=== PATIENT | male | born 1940 | race Caucasian/White ===

== ENCOUNTER 2020-04-25 08:45 | Inpatient (IN) | payer OTHER ==
[~2020-04-25] VITALS: Ht 172.7 cm; Wt 76.6 kg
[2020-04-25] MEDS ORDERED: DOXYCYCLINE 100MG/250ML 250 ML IV ONE ×2 (10:00→14:00)
[2020-04-25] MEDS ORDERED: DexAMETHasone SOD PHOS 10MG/1ML VIAL INJ IV ONE ×2 (10:00→13:45)
[2020-04-25] MEDS ORDERED: SODIUM CHLORIDE 0.9% 1,000 ML IV ONE ×2 (10:00→16:00)
[2020-04-25 10:19] LABS: Basophils # (auto) 0 10 ^3/uL (0-0.2); Basophils % (auto) 0.1 % (0.0-2.0); Eosinophils # (auto) 0 10 ^3/uL (0-0.8); Hematocrit 45.6 % (41.0-53.0); Hemoglobin 15.2 g/dL (13.5-17.5); Lymphocytes # (auto) 0.2 10 ^3/uL (0.4-5.4); Lymphocytes % (auto) 4.2 % (10.0-50.0); Mean Corpuscular Hemoglobin 31.6 pg (28.0-32.0); Mean Corpuscular Hgb Conc. 33.4 g/dL (32.0-36.0); Mean Corpuscular Volume 94.4 fL (80.0-100.0); Monocytes # (auto) 0.4 10 ^3/uL (0-1.3); Monocytes % (auto) 8.4 % (0.0-12.0); Neutrophils # (auto) 4.3 10 ^3/uL (1.6-8.6); Neutrophils % (auto) 87.3 % (37.0-80.0); Nucleated Red Blood Cells % 0.1 %; Platelet Count (auto) 88 10^3/uL (140-450); Red Blood Cells 4.83 10^6/uL (4.5-5.90); Red Cell Distribution Width 13.3 % (11.8-14.3)
[2020-04-25 10:37] LABS: Albumin 3.4 g/dL (3.4-5.0); Calcium 8.4 mg/dL (8.5-10.1); Magnesium 2.5 mg/dL (1.6-2.6); Potassium 3.6 mmol/L (3.5-5.1)
[2020-04-25 10:42] LABS: BUN/Creatinine Ratio 26.2; Bilirubin, Total 0.6 mg/dL (0.2-1.0); Total Protein 7.2 g/dL (6.4-8.2)
[2020-04-25 10:45] LABS: INR 0.96 (0.9-1.15); Partial Thromboplastin Time 31.7 sec (23.0-31.2)
[2020-04-25] MEDS ORDERED: ADENOSINE 6 MG/2 ML INJ IV ONE (11:30)
[2020-04-25] MEDS ORDERED: dilTIAZem 25 MG/5 ML VIAL IV ONE (12:00)
[2020-04-25] MEDS ORDERED: dilTIAZem HCL 60 MG TAB PO ONE (12:00)
[2020-04-25] MEDS ORDERED: NITROGLYCERIN 0.4 MG SL TAB SL PRN (13:30)
[2020-04-25] MEDS ORDERED: MORPHINE SULF INJ 2 MG/ML SYRINGE 1ML IV PRN ×2 (13:30)
[2020-04-25] MEDS ORDERED: ACETAMINOPHEN 500 MG TAB PO PRN ×2 (13:30→22:15)
[2020-04-25] MEDS ORDERED: ONDANSETRON HCL 4 MG/2 ML VIAL IV PRN (13:30)
[2020-04-25] MEDS ORDERED: HYDROcodone-ACET 5/325MG TAB PO PRN (13:30)
[2020-04-25] MEDS ORDERED: ZINC SULFATE 220mg CAP or TAB PO ONE (13:45)
[2020-04-25] MEDS ORDERED: ASPirin-EC 81 mg tab PO ONE (13:45)
[2020-04-25] MEDS ORDERED: CHOLECALCIFEROL (VITD3) 2,000 UNIT CAP PO ONE (13:45)
[2020-04-25] MEDS ORDERED: ASCORBIC ACID 1,000 MG TAB PO ONE (13:45)
[2020-04-25] MEDS ORDERED: ENOXAPARIN SOD 40 MG/0.4 ML SYRINGE SC ONE (13:45)
[2020-04-25] MEDS ORDERED: FAMOTIDINE 20 MG TAB PO ONE (14:00)
[2020-04-25] MEDS: ALBUTEROL SULF HFA 90MCG INH 200DOSE IN SCH ×2 (14:00→23:49)
[2020-04-25] MEDS ORDERED: METOPROLOL TARTRATE 25 MG TAB PO ONE (14:00)
[2020-04-25] MEDS ORDERED: cefTRIAXone 1GM/50ML D5W 50 ML IV ONE (14:00)
[2020-04-25 14:13] LABS: CRP High Sensitivity 4.17 mg/dL (< 0.3)
[2020-04-25] MEDS: METOPROLOL TARTRATE 25 MG TAB PO SCH ×2 (14:13→22:33)
[2020-04-25 14:46] LABS: Urine Bacteria NONE SEEN /hpf (None Seen); Urine Blood Negative /uL (Negative); Urine Hyaline Cast FEW /lpf (0 - 2); Urine Mucus FEW (None Seen); Urine Specific Gravity 1.027 (1.001-1.035); Urine WBC 1 /hpf (0 - 3)
[2020-04-25] MEDS ORDERED: LISI-648 PO (16:06)
[2020-04-25] MEDS ORDERED: DOXA4TAB5 PO (16:08)
[2020-04-25] MEDS ORDERED: THEO400T PO (16:09)
[2020-04-25] MEDS ORDERED: LEVO100T8 PO (16:10)
[2020-04-25] MEDS ORDERED: METOPROLOL TARTRATE 25 MG TAB PO SCH (22:00)
[2020-04-25] MEDS: DOXYCYCLINE 100MG/250ML 250 ML IV SCH (22:33)
[2020-04-25] MEDS: ATORVASTATIN 20 MG TAB PO SCH (22:33)
[2020-04-25 22:48] VITALS: BP 112/67
[2020-04-25 23:40] VITALS: BP 112/67
[2020-04-25] MEDS: BUDESONIDE (INHALATION) 180 MCG IH IN SCH (23:49)
[2020-04-26 06:37] LABS: Basophils # (auto) 0 10 ^3/uL (0-0.2); Eosinophils # (auto) 0 10 ^3/uL (0-0.8); Hematocrit 39.7 % (41.0-53.0); Hemoglobin 13.2 g/dL (13.5-17.5); Lymphocytes # (auto) 0.3 10 ^3/uL (0.4-5.4); Lymphocytes % (auto) 7.2 % (10.0-50.0); Mean Corpuscular Hemoglobin 31.4 pg (28.0-32.0); Mean Corpuscular Hgb Conc. 33.2 g/dL (32.0-36.0); Mean Corpuscular Volume 94.6 fL (80.0-100.0); Monocytes # (auto) 0.3 10 ^3/uL (0-1.3); Monocytes % (auto) 6.6 % (0.0-12.0); Neutrophils # (auto) 3.9 10 ^3/uL (1.6-8.6); Neutrophils % (auto) 86.2 % (37.0-80.0); Nucleated Red Blood Cells % 0.1 %; Platelet Count (auto) 89 10^3/uL (140-450); Red Blood Cells 4.19 10^6/uL (4.5-5.90); Red Cell Distribution Width 13.2 % (11.8-14.3); White Blood Cell 4.5 10^3/uL (4.4-10.8)
[2020-04-26 06:56] LABS: Albumin 2.8 g/dL (3.4-5.0); Calcium 7.8 mg/dL (8.5-10.1); Potassium 3.9 mmol/L (3.5-5.1)
[2020-04-26 06:58] LABS: BUN/Creatinine Ratio 30.7
[2020-04-26 07:00] LABS: Bilirubin, Total 0.4 mg/dL (0.2-1.0)
[2020-04-26] MEDS: ALBUTEROL SULF HFA 90MCG INH 200DOSE IN SCH ×4 (07:43→23:20)
[2020-04-26] MEDS: BUDESONIDE (INHALATION) 180 MCG IH IN SCH ×3 (07:43→23:20)
[2020-04-26] MEDS: METOPROLOL TARTRATE 25 MG TAB PO SCH ×2 (08:30→18:15)
[2020-04-26] MEDS ORDERED: cefTRIAXone 1GM/50ML D5W 50 ML IV SCH (09:00)
[2020-04-26] MEDS ORDERED: ENOXAPARIN SOD 40 MG/0.4 ML SYRINGE SC SCH (10:00)
[2020-04-26] MEDS ORDERED: FAMOTIDINE 20 MG TAB PO SCH (10:00)
[2020-04-26] MEDS ORDERED: ENOXAPARIN SOD 100 MG/1 ML SYRINGE SC ONE (13:00)
[2020-04-26] MEDS ORDERED: FUROSEMIDE 20 MG/2 ML VIAL IV ONE (13:00)
[2020-04-26] MEDS: ASPirin-EC 81 mg tab PO SCH (15:41)
[2020-04-26] MEDS: DOXYCYCLINE 100MG/250ML 250 ML IV SCH ×2 (15:41→23:54)
[2020-04-26] MEDS: ZINC SULFATE 220mg CAP or TAB PO SCH (15:41)
[2020-04-26] MEDS: CHOLECALCIFEROL (VITD3) 2,000 UNIT CAP PO SCH (15:42)
[2020-04-26] MEDS: ASCORBIC ACID 1,000 MG TAB PO SCH (15:42)
[2020-04-26] MEDS: DexAMETHasone SOD PHOS 10MG/1ML VIAL INJ IV SCH (15:42)
[2020-04-26] MEDS: LORazepam 2MG/ML-1ML VIAL IV PRN ×2 (16:32→22:52)
[2020-04-26 17:00] VITALS: BP 120/77
[2020-04-26] MEDS: FUROSEMIDE 20 MG/2 ML VIAL IV SCH (18:00)
[2020-04-26] MEDS: HALOPERIDOL LACTATE 5 MG/ML INJ VIAL IM PRN (21:02)
[2020-04-26] MEDS: ENOXAPARIN SOD 100 MG/1 ML SYRINGE SC SCH (22:00)
[2020-04-26] MEDS: ATORVASTATIN 20 MG TAB PO SCH (22:00)
[2020-04-26] MEDS ORDERED: METOPROLOL TARTRATE 1MG/1ML-5ML VIAL IV ONE (23:30)
[2020-04-26] MEDS: METOPROLOL TARTRATE 50 MG TAB PO SCH (23:36)
[2020-04-26] MEDS: METOPROLOL TARTRATE 1MG/1ML-5ML VIAL IV SCH (23:36)
[2020-04-27] VITALS (27 sets, daily range): BP systolic 90–145; BP diastolic 43–106
[2020-04-27] MEDS: FUROSEMIDE 20 MG/2 ML VIAL IV SCH (05:20)
[2020-04-27] MEDS: METOPROLOL TARTRATE 1MG/1ML-5ML VIAL IV SCH (05:30)
[2020-04-27] MEDS: LORazepam 2MG/ML-1ML VIAL IV PRN (05:45)
[2020-04-27] MEDS: ALBUTEROL SULF HFA 90MCG INH 200DOSE IN SCH ×2 (06:00→14:00)
[2020-04-27] MEDS ORDERED: METOPROLOL TARTRATE 1MG/1ML-5ML VIAL IV PRN ×2 (07:45→10:00)
[2020-04-27] MEDS: HALOPERIDOL LACTATE 5 MG/ML INJ VIAL IM PRN (07:48)
[2020-04-27] MEDS ORDERED: METOPROLOL TARTRATE 1MG/1ML-5ML VIAL IV ONE (07:57)
[2020-04-27] MEDS ORDERED: LORazepam 2MG/ML-1ML VIAL ONE (09:01)
[2020-04-27] MEDS ORDERED: MIDAZOLAM DRIP 50 mg/50mL 50 ML IV ONE ×2 (09:12→10:04)
[2020-04-27] MEDS ORDERED: LORazepam 2MG/ML-1ML VIAL IV PRN (09:15)
[2020-04-27] MEDS: dilTIAZem 125mg/125ml BAG KIT 125 ML IV SCH (09:30)
[2020-04-27] MEDS ORDERED: VANCOMYCIN PER PHARMACY 0 MG IV SCH (09:45)
[2020-04-27] MEDS ORDERED: PIPERACILLIN-TAZOB 3.375GM 100 ML IV ONE (09:45)
[2020-04-27] MEDS ORDERED: FUROSEMIDE 100 MG/10ML VIAL IV ONE (09:45)
[2020-04-27] MEDS: ASCORBIC ACID 1,000 MG TAB PO SCH (10:00)
[2020-04-27] MEDS: DexAMETHasone SOD PHOS 10MG/1ML VIAL INJ IV SCH (10:00)
[2020-04-27] MEDS: FAMOTIDINE (10MG/ML) 2ML VL IV SCH ×2 (10:00→21:49)
[2020-04-27] MEDS: ENOXAPARIN SOD 100 MG/1 ML SYRINGE SC SCH ×2 (10:00→21:50)
[2020-04-27] MEDS: BUDESONIDE (INHALATION) 180 MCG IH IN SCH (10:00)
[2020-04-27] MEDS: ZINC SULFATE 220mg CAP or TAB PO SCH (10:00)
[2020-04-27] MEDS: METOPROLOL TARTRATE 50 MG TAB PO SCH ×2 (10:00→21:50)
[2020-04-27] MEDS: ASPirin-EC 81 mg tab PO SCH (10:00)
[2020-04-27] MEDS: CHOLECALCIFEROL (VITD3) 2,000 UNIT CAP PO SCH (10:00)
[2020-04-27] MEDS: MIDAZOLAM DRIP 50 mg/50mL 50 ML IV SCH ×3 (11:00→23:00)
[2020-04-27 11:44] LABS: Albumin 2.7 g/dL (3.4-5.0); Calcium 7.6 mg/dL (8.5-10.1); Magnesium 2.5 mg/dL (1.6-2.6); Potassium 4.8 mmol/L (3.5-5.1)
[2020-04-27 11:45] LABS: INR 0.95 (0.9-1.15)
[2020-04-27 11:50] LABS: BUN/Creatinine Ratio 24.2; Bilirubin, Total 0.8 mg/dL (0.2-1.0); Phosphorus 5.8 mg/dL (2.5-4.90); Total Protein 6.2 g/dL (6.4-8.2)
[2020-04-27] MEDS ORDERED: dilTIAZem 25 MG/5 ML VIAL IV PRN (12:00)
[2020-04-27 14:07] LABS: Basophils # (auto) 0 10 ^3/uL (0-0.2); Eosinophils # (auto) 0 10 ^3/uL (0-0.8); Hematocrit 45.6 % (41.0-53.0); Hemoglobin 14.8 g/dL (13.5-17.5); Lymphocytes # (auto) 0.2 10 ^3/uL (0.4-5.4); Lymphocytes % (auto) 2.3 % (10.0-50.0); Mean Corpuscular Hemoglobin 31.8 pg (28.0-32.0); Mean Corpuscular Hgb Conc. 32.5 g/dL (32.0-36.0); Mean Corpuscular Volume 97.8 fL (80.0-100.0); Monocytes # (auto) 0.2 10 ^3/uL (0-1.3); Neutrophils # (auto) 8.5 10 ^3/uL (1.6-8.6); Neutrophils % (auto) 95.7 % (37.0-80.0); Platelet Count (auto) 88 10^3/uL (140-450); Red Blood Cells 4.66 10^6/uL (4.5-5.90); Red Cell Distribution Width 13.8 % (11.8-14.3); White Blood Cell 8.9 10^3/uL (4.4-10.8)
[2020-04-27] MEDS ORDERED: NOREPINEPHRINE 8 MG/250ML KIT 250 ML IV ONE (14:45)
[2020-04-27] MEDS: NOREPINEPHRINE 8 MG/250ML KIT 250 ML IV SCH (14:45)
[2020-04-27] MEDS ORDERED: VANCOMYCIN 1GM/250ML 250 ML IV ONE ×2 (15:00→17:00)
[2020-04-27] MEDS ORDERED: FUROSEMIDE 20 MG/2 ML VIAL IV SCH (18:00)
[2020-04-27] MEDS: PIPERACILLIN-TAZOB 3.375GM 100 ML IV SCH (18:00)
[2020-04-27] MEDS: ATORVASTATIN 20 MG TAB PO SCH (22:25)
[2020-04-27] MEDS: fentaNYL Drip 2500mCg/250mlNS 250 ML IV SCH (22:57)
[2020-04-28] VITALS (52 sets, daily range): BP systolic 78–124; BP diastolic 48–78
[2020-04-28] MEDS: PIPERACILLIN-TAZOB 3.375GM 100 ML IV SCH ×3 (00:08→11:46)
[2020-04-28] MEDS: MIDAZOLAM DRIP 50 mg/50mL 50 ML IV SCH ×3 (03:49→21:51)
[2020-04-28] MEDS ORDERED: ETOMIDATE (2MG/ML) 20ML VIAL IV ONE (05:42)
[2020-04-28] MEDS ORDERED: SUCCINYLCHOLINE CHLORIDE 20 MG/ML 10ML VIAL IV ONE (05:43)
[2020-04-28] MEDS ORDERED: FUROSEMIDE 40 MG/4 ML VIAL IV SCH (06:00)
[2020-04-28] MEDS: ALBUTEROL SULF HFA 90MCG INH 200DOSE IN SCH ×2 (06:00→14:00)
[2020-04-28] MEDS: ATORVASTATIN 20 MG TAB PO SCH (07:51)
[2020-04-28 08:07] LABS: Albumin 2.2 g/dL (3.4-5.0); Calcium 7.3 mg/dL (8.5-10.1); Potassium 3.9 mmol/L (3.5-5.1)
[2020-04-28 08:14] LABS: Cholesterol 111 mg/dL (< 200); Triglycerides 56 mg/dL (< 150)
[2020-04-28 08:19] LABS: HDL Cholesterol 56 mg/dL (40-59); LDL Cholesterol 34 mg/dL (< 100)
[2020-04-28 08:20] LABS: BUN/Creatinine Ratio 25.6; Bilirubin, Total 0.7 mg/dL (0.2-1.0); Magnesium 2.7 mg/dL (1.6-2.6); Total Protein 5.5 g/dL (6.4-8.2)
[2020-04-28] MEDS: dilTIAZem 125mg/125ml BAG KIT 125 ML IV SCH (09:30)
[2020-04-28] MEDS: BUDESONIDE (INHALATION) 180 MCG IH IN SCH ×2 (10:00→22:00)
[2020-04-28] MEDS: CHOLECALCIFEROL (VITD3) 2,000 UNIT CAP PO SCH (10:00)
[2020-04-28] MEDS ORDERED: SODIUM BICARBONATE 8.4 % INJ 50ML VIAL IV SCH (10:00)
[2020-04-28] MEDS: ZINC SULFATE 220mg CAP or TAB PO SCH (11:45)
[2020-04-28] MEDS: DexAMETHasone SOD PHOS 10MG/1ML VIAL INJ IV SCH (11:45)
[2020-04-28] MEDS: ASPirin-EC 81 mg tab PO SCH (11:45)
[2020-04-28] MEDS: ASCORBIC ACID 1,000 MG TAB PO SCH (11:45)
[2020-04-28] MEDS: FAMOTIDINE (10MG/ML) 2ML VL IV SCH (11:45)
[2020-04-28] MEDS: ENOXAPARIN SOD 100 MG/1 ML SYRINGE SC SCH (11:45)
[2020-04-28] MEDS ORDERED: REMDESIVIR PER PHARMACY IV SCH (12:15)
[2020-04-28] MEDS ORDERED: PROPOFOL 0 ML IV ONE (12:24)
[2020-04-28] MEDS ORDERED: AZITHROMYCIN 500MG/ 250ML 250 ML IV ONE (13:15)
[2020-04-28] MEDS: NOREPINEPHRINE 8 MG/250ML KIT 250 ML IV SCH ×2 (14:45→22:23)
[2020-04-28] MEDS ORDERED: DOXYCYCLINE 100MG/250ML 250 ML IV SCH ×2 (14:45→15:00)
[2020-04-28] MEDS: fentaNYL Drip 2500mCg/250mlNS 250 ML IV SCH (16:54)
[2020-04-28] MEDS ORDERED: REMDESIVIR 200 MG in NS 210ml LOADING DOSE ADULT IV ONE (17:00)
[2020-04-28 19:30] LABS: Urine Bacteria FEW /hpf (None Seen); Urine Blood 3+ /uL (Negative); Urine Mucus FEW (None Seen); Urine Specific Gravity 1.017 (1.001-1.035); Urine WBC 4 /hpf (0 - 3)
[2020-04-28] MEDS: DOXYCYCLINE 100MG/250ML 250 ML IV SCH (20:00)
[2020-04-29] VITALS (102 sets, daily range): BP systolic 87–136; BP diastolic 47–113
[2020-04-29] MEDS: MIDAZOLAM DRIP 50 mg/50mL 50 ML IV SCH ×4 (00:36→23:46)
[2020-04-29] MEDS: ALBUTEROL SULF HFA 90MCG INH 200DOSE IN SCH (01:31)
[2020-04-29 02:42] LABS: Urine Bacteria NONE SEEN /hpf (None Seen); Urine Blood 2+ /uL (Negative); Urine Hyaline Cast FEW /lpf (0 - 2); Urine Mucus FEW (None Seen); Urine Specific Gravity 1.019 (1.001-1.035); Urine WBC 12 /hpf (0 - 3); Urine WBC Clumps PRESENT /hpf (None Seen)
[2020-04-29] MEDS: fentaNYL Drip 2500mCg/250mlNS 250 ML IV SCH (02:44)
[2020-04-29 03:07] LABS: Protein, Urine 51.4 mg/dL (0.0-11.9); Sodium Urine < 5 mmol/L (40-220)
[2020-04-29 03:09] LABS: Creatinine, Urine 90 mg/dL (30.0-125.0)
[2020-04-29 05:45] LABS: Basophils # (auto) 0 10 ^3/uL (0-0.2); Basophils % (auto) 0.2 % (0.0-2.0); Eosinophils # (auto) 0 10 ^3/uL (0-0.8); Hematocrit 34.8 % (41.0-53.0); Hemoglobin 11.6 g/dL (13.5-17.5); Lymphocytes # (auto) 0.2 10 ^3/uL (0.4-5.4); Lymphocytes % (auto) 1.8 % (10.0-50.0); Mean Corpuscular Hemoglobin 31.4 pg (28.0-32.0); Mean Corpuscular Hgb Conc. 33.3 g/dL (32.0-36.0); Mean Corpuscular Volume 94.3 fL (80.0-100.0); Monocytes # (auto) 0.3 10 ^3/uL (0-1.3); Monocytes % (auto) 2.9 % (0.0-12.0); Neutrophils # (auto) 8.8 10 ^3/uL (1.6-8.6); Neutrophils % (auto) 95.1 % (37.0-80.0); Nucleated Red Blood Cells % 0.1 %; Platelet Count (auto) 115 10^3/uL (140-450); Red Blood Cells 3.69 10^6/uL (4.5-5.90); Red Cell Distribution Width 13.6 % (11.8-14.3); White Blood Cell 9.3 10^3/uL (4.4-10.8)
[2020-04-29 06:10] LABS: BUN/Creatinine Ratio 27.5; Calcium 7.8 mg/dL (8.5-10.1); Potassium 3.9 mmol/L (3.5-5.1)
[2020-04-29 06:20] LABS: Bilirubin, Total 0.4 mg/dL (0.2-1.0); CRP High Sensitivity 17.6 mg/dL (< 0.3); Phosphorus 3.9 mg/dL (2.5-4.90); Total Protein 5.5 g/dL (6.4-8.2)
[2020-04-29] MEDS: BUDESONIDE (INHALATION) 0.5 MG/2 ML NEB NEB SCH ×2 (07:13→18:51)
[2020-04-29] MEDS: ALBUTEROL SULF 2.5 MG/0.5ML(0.5%) NEB SOLN NEB SCH ×3 (07:13→18:51)
[2020-04-29] MEDS: dilTIAZem 125mg/125ml BAG KIT 125 ML IV SCH (08:27)
[2020-04-29] MEDS: DOXYCYCLINE 100MG/250ML 250 ML IV SCH ×2 (08:27→19:51)
[2020-04-29] MEDS: ASPirin-EC 81 mg tab PO SCH (08:27)
[2020-04-29] MEDS: ZINC SULFATE 220mg CAP or TAB PO SCH (08:28)
[2020-04-29] MEDS: CHOLECALCIFEROL (VITD3) 2,000 UNIT CAP PO SCH (08:28)
[2020-04-29] MEDS: DexAMETHasone SOD PHOS 10MG/1ML VIAL INJ IV SCH (08:28)
[2020-04-29] MEDS: ASCORBIC ACID 1,000 MG TAB PO SCH (08:28)
[2020-04-29] MEDS: FAMOTIDINE (10MG/ML) 2ML VL IV SCH (08:28)
[2020-04-29] MEDS: ENOXAPARIN SOD 100 MG/1 ML SYRINGE SC SCH (08:28)
[2020-04-29] MEDS ORDERED: AZITHROMYCIN 500MG/ 250ML 250 ML IV SCH (10:00)
[2020-04-29] MEDS: REMDESIVIR 100mg in NS 230ml DAILYx4DAYS (NO VENT) IV SCH (16:46)
[2020-04-29 17:10] LABS: Creatinine, Urine 112 mg/dL (30.0-125.0); Protein, Urine 55.4 mg/dL (0.0-11.9); Sodium Urine < 5 mmol/L (40-220); Urine Bacteria FEW /hpf (None Seen); Urine Blood 2+ /uL (Negative); Urine Hyaline Cast FEW /lpf (0 - 2); Urine Specific Gravity 1.017 (1.001-1.035); Urine WBC 3 /hpf (0 - 3)
[2020-04-29] MEDS ORDERED: Jevity 1.2 Cal/Fiber 1 Liter GT SCH (18:00)
[2020-04-29] MEDS: NOREPINEPHRINE 8 MG/250ML KIT 250 ML IV SCH (19:58)
[2020-04-29] MEDS: ATORVASTATIN 20 MG TAB PO SCH (22:23)
[2020-04-30] VITALS (98 sets, daily range): BP systolic 81–137; BP diastolic 37–72
[2020-04-30 02:04] LABS: Urine Amorphous Crystal FEW /hpf (None Seen); Urine Bacteria FEW /hpf (None Seen); Urine Blood 2+ /uL (Negative); Urine Hyaline Cast MANY /lpf (0 - 2); Urine Mucus FEW (None Seen); Urine Specific Gravity 1.017 (1.001-1.035); Urine WBC 12 /hpf (0 - 3)
[2020-04-30] MEDS: fentaNYL Drip 2500mCg/250mlNS 250 ML IV SCH ×2 (02:57→23:39)
[2020-04-30] MEDS: MIDAZOLAM DRIP 50 mg/50mL 50 ML IV SCH ×3 (03:15→23:56)
[2020-04-30 03:59] LABS: Basophils # (auto) 0 10 ^3/uL (0-0.2); Basophils % (auto) 0.1 % (0.0-2.0); Eosinophils # (auto) 0 10 ^3/uL (0-0.8); Hematocrit 34.6 % (41.0-53.0); Hemoglobin 11.5 g/dL (13.5-17.5); Lymphocytes # (auto) 0.1 10 ^3/uL (0.4-5.4); Lymphocytes % (auto) 1.3 % (10.0-50.0); Mean Corpuscular Hemoglobin 31.6 pg (28.0-32.0); Mean Corpuscular Hgb Conc. 33.1 g/dL (32.0-36.0); Mean Corpuscular Volume 95.4 fL (80.0-100.0); Monocytes # (auto) 0.4 10 ^3/uL (0-1.3); Monocytes % (auto) 4.5 % (0.0-12.0); Neutrophils # (auto) 7.5 10 ^3/uL (1.6-8.6); Neutrophils % (auto) 94.1 % (37.0-80.0); Nucleated Red Blood Cells % 0.1 %; Platelet Count (auto) 130 10^3/uL (140-450); Red Blood Cells 3.63 10^6/uL (4.5-5.90); Red Cell Distribution Width 13.7 % (11.8-14.3); White Blood Cell 7.9 10^3/uL (4.4-10.8)
[2020-04-30 04:22] LABS: Bilirubin, Direct 0.2 mg/dL (0-0.2); Calcium 7.9 mg/dL (8.5-10.1); Potassium 4.5 mmol/L (3.5-5.1)
[2020-04-30 04:25] LABS: BUN/Creatinine Ratio 30.5; Bilirubin, Total 0.4 mg/dL (0.2-1.0); Phosphorus 4.4 mg/dL (2.5-4.90); Total Protein 5.4 g/dL (6.4-8.2)
[2020-04-30] MEDS: ALBUTEROL SULF 2.5 MG/0.5ML(0.5%) NEB SOLN NEB SCH ×3 (06:00→22:47)
[2020-04-30] MEDS: BUDESONIDE (INHALATION) 0.5 MG/2 ML NEB NEB SCH ×2 (06:00→22:47)
[2020-04-30] MEDS: dilTIAZem 125mg/125ml BAG KIT 125 ML IV SCH (09:30)
[2020-04-30] MEDS: DOXYCYCLINE 100MG/250ML 250 ML IV SCH ×2 (09:32→20:20)
[2020-04-30] MEDS: DexAMETHasone SOD PHOS 10MG/1ML VIAL INJ IV SCH (10:12)
[2020-04-30] MEDS: CHOLECALCIFEROL (VITD3) 2,000 UNIT CAP PO SCH (10:13)
[2020-04-30] MEDS: ASPirin-EC 81 mg tab PO SCH (10:13)
[2020-04-30] MEDS: ASCORBIC ACID 1,000 MG TAB PO SCH (10:13)
[2020-04-30] MEDS: FAMOTIDINE (10MG/ML) 2ML VL IV SCH (10:13)
[2020-04-30] MEDS: ENOXAPARIN SOD 100 MG/1 ML SYRINGE SC SCH (10:13)
[2020-04-30] MEDS: ZINC SULFATE 220mg CAP or TAB PO SCH (10:18)
[2020-04-30] MEDS: DOPamine 1600MCG/ML D5W 250 ML IV SCH (12:00)
[2020-04-30] MEDS ORDERED: DEXTROSE (50%) 50ML SYRG IV PRN (15:00)
[2020-04-30] MEDS: InsuLIN REG 1unit/0.01ml Soln (100units/ml) SC SCH ×2 (17:23→22:00)
[2020-04-30] MEDS: ACCU-CHEK COMFORT CURVE STRIP VI SCH ×2 (17:23→22:00)
[2020-04-30] MEDS: REMDESIVIR 100mg in NS 230ml DAILYx4DAYS (NO VENT) IV SCH (17:23)
[2020-04-30] MEDS: ATORVASTATIN 20 MG TAB PO SCH (22:00)
[2020-05-01] VITALS (100 sets, daily range): BP systolic 69–144; BP diastolic 23–79
[2020-05-01] MEDS: MIDAZOLAM DRIP 50 mg/50mL 50 ML IV SCH ×3 (04:03→22:54)
[2020-05-01] MEDS: ACCU-CHEK COMFORT CURVE STRIP VI SCH ×4 (06:05→22:00)
[2020-05-01] MEDS: InsuLIN REG 1unit/0.01ml Soln (100units/ml) SC SCH ×4 (06:06→22:00)
[2020-05-01 06:10] LABS: Albumin 1.9 g/dL (3.4-5.0); Potassium 4.8 mmol/L (3.5-5.1)
[2020-05-01 06:15] LABS: BUN/Creatinine Ratio 36.3; Bilirubin, Total 0.4 mg/dL (0.2-1.0); Total Protein 5.4 g/dL (6.4-8.2)
[2020-05-01] MEDS: DOXYCYCLINE 100MG/250ML 250 ML IV SCH ×2 (08:17→20:00)
[2020-05-01] MEDS: dilTIAZem 125mg/125ml BAG KIT 125 ML IV SCH (09:30)
[2020-05-01] MEDS: DOPamine 1600MCG/ML D5W 250 ML IV SCH (10:00)
[2020-05-01] MEDS: DexAMETHasone SOD PHOS 10MG/1ML VIAL INJ IV SCH (10:40)
[2020-05-01] MEDS: ZINC SULFATE 220mg CAP or TAB PO SCH (10:41)
[2020-05-01] MEDS: ASPirin-EC 81 mg tab PO SCH (10:41)
[2020-05-01] MEDS: FAMOTIDINE (10MG/ML) 2ML VL IV SCH (10:41)
[2020-05-01] MEDS: ENOXAPARIN SOD 100 MG/1 ML SYRINGE SC SCH (10:41)
[2020-05-01] MEDS: CHOLECALCIFEROL (VITD3) 2,000 UNIT CAP PO SCH (10:41)
[2020-05-01] MEDS: ASCORBIC ACID 1,000 MG TAB PO SCH (10:41)
[2020-05-01] MEDS: ALBUTEROL SULF 2.5 MG/0.5ML(0.5%) NEB SOLN NEB SCH ×3 (10:50→20:13)
[2020-05-01] MEDS: BUDESONIDE (INHALATION) 0.5 MG/2 ML NEB NEB SCH ×2 (10:50→20:13)
[2020-05-01] MEDS: fentaNYL Drip 2500mCg/250mlNS 250 ML IV SCH ×2 (11:05→22:57)
[2020-05-01] MEDS: NOREPINEPHRINE 8 MG/250ML KIT 250 ML IV SCH ×2 (14:45→16:14)
[2020-05-01] MEDS ORDERED: METOPROLOL TARTRATE 50 MG TAB PO ONE (16:30)
[2020-05-01] MEDS: REMDESIVIR 100mg in NS 230ml DAILYx4DAYS (NO VENT) IV SCH (17:30)
[2020-05-01] MEDS: METOPROLOL TARTRATE 50 MG TAB PO SCH (22:00)
[2020-05-01] MEDS: ATORVASTATIN 20 MG TAB PO SCH (22:00)
[2020-05-02] VITALS (100 sets, daily range): BP systolic 81–130; BP diastolic 48–74
[2020-05-02] MEDS: MIDAZOLAM DRIP 50 mg/50mL 50 ML IV SCH ×4 (05:06→17:33)
[2020-05-02] MEDS: ALBUTEROL SULF 2.5 MG/0.5ML(0.5%) NEB SOLN NEB SCH ×3 (06:00→23:58)
[2020-05-02] MEDS: ACCU-CHEK COMFORT CURVE STRIP VI SCH ×4 (06:41→22:00)
[2020-05-02] MEDS: InsuLIN REG 1unit/0.01ml Soln (100units/ml) SC SCH ×4 (06:42→22:00)
[2020-05-02 07:05] LABS: Hemoglobin 11.2 g/dL (13.5-17.5); Mean Corpuscular Hemoglobin 32.1 pg (28.0-32.0); Mean Corpuscular Volume 94.6 fL (80.0-100.0); Platelet Count (auto) 155 10^3/uL (140-450); Red Blood Cells 3.49 10^6/uL (4.5-5.90); Red Cell Distribution Width 13.5 % (11.8-14.3); White Blood Cell 5.1 10^3/uL (4.4-10.8)
[2020-05-02 07:07] LABS: Basophils % (manual) 0 (0.0-2.0); Blast Cells 0; Eosinophils % (manual) 0 (0-7); Promyelocytes % 0; Reactive Lymphocytes 0
[2020-05-02 07:10] LABS: Potassium 5.1 mmol/L (3.5-5.1)
[2020-05-02 07:23] LABS: Albumin 1.9 g/dL (3.4-5.0); BUN/Creatinine Ratio 42.1; Bilirubin, Total 0.5 mg/dL (0.2-1.0); Calcium 7.9 mg/dL (8.5-10.1); Total Protein 5.2 g/dL (6.4-8.2)
[2020-05-02] MEDS: DOXYCYCLINE 100MG/250ML 250 ML IV SCH ×2 (08:06→20:00)
[2020-05-02 08:41] LABS: Band Neutrophils % (manual) 1; Lymphocytes % (manual) 8 (10.0-50.0); Metamyelocytes % 2; Monocytes % (manual) 4 (0-12); Myelocytes % 1
[2020-05-02] MEDS: BUDESONIDE (INHALATION) 0.5 MG/2 ML NEB NEB SCH ×2 (10:00→23:58)
[2020-05-02] MEDS: ENOXAPARIN SOD 100 MG/1 ML SYRINGE SC SCH ×2 (10:00→10:06)
[2020-05-02] MEDS: FAMOTIDINE (10MG/ML) 2ML VL IV SCH (10:06)
[2020-05-02] MEDS: ASCORBIC ACID 1,000 MG TAB PO SCH (10:06)
[2020-05-02] MEDS: METOPROLOL TARTRATE 50 MG TAB PO SCH ×2 (10:07→22:00)
[2020-05-02] MEDS: CHOLECALCIFEROL (VITD3) 2,000 UNIT CAP PO SCH (10:07)
[2020-05-02] MEDS: DexAMETHasone SOD PHOS 10MG/1ML VIAL INJ IV SCH (10:08)
[2020-05-02] MEDS: DOPamine 1600MCG/ML D5W 250 ML IV SCH (11:47)
[2020-05-02] MEDS: ZINC SULFATE 220mg CAP or TAB PO SCH (12:00)
[2020-05-02] MEDS ORDERED: METOCLOPRAMIDE HCL 5MG/ml INJ 2ml VIAL IV PRN (12:00)
[2020-05-02] MEDS: ASPirin-EC 81 mg tab PO SCH (12:00)
[2020-05-02] MEDS ORDERED: METOCLOPRAMIDE HCL 5MG/ml INJ 2ml VIAL IV ONE (16:15)
[2020-05-02] MEDS: REMDESIVIR 100mg in NS 230ml DAILYx4DAYS (NO VENT) IV SCH (17:35)
[2020-05-02] MEDS: NOREPINEPHRINE 8 MG/250ML KIT 250 ML IV SCH (17:52)
[2020-05-02] MEDS ORDERED: ALBUMIN 25% 50 ML IV ONE ×2 (18:00→18:15)
[2020-05-02] MEDS: fentaNYL Drip 2500mCg/250mlNS 250 ML IV SCH (21:56)
[2020-05-02] MEDS: METOCLOPRAMIDE HCL 5MG/ml INJ 2ml VIAL IV SCH (21:56)
[2020-05-02] MEDS: ATORVASTATIN 20 MG TAB PO SCH (21:56)
[2020-05-03] VITALS (94 sets, daily range): BP systolic 85–120; BP diastolic 40–68
[2020-05-03 06:25] LABS: Basophils # (auto) 0 10 ^3/uL (0-0.2); Basophils % (auto) 0.1 % (0.0-2.0); Eosinophils # (auto) 0 10 ^3/uL (0-0.8); Hematocrit 35.9 % (41.0-53.0); Hemoglobin 11.6 g/dL (13.5-17.5); Lymphocytes # (auto) 0.3 10 ^3/uL (0.4-5.4); Lymphocytes % (auto) 2.2 % (10.0-50.0); Mean Corpuscular Hemoglobin 30.6 pg (28.0-32.0); Mean Corpuscular Hgb Conc. 32.3 g/dL (32.0-36.0); Mean Corpuscular Volume 94.7 fL (80.0-100.0); Monocytes # (auto) 0.9 10 ^3/uL (0-1.3); Monocytes % (auto) 6.8 % (0.0-12.0); Neutrophils # (auto) 12.1 10 ^3/uL (1.6-8.6); Neutrophils % (auto) 90.9 % (37.0-80.0); Platelet Count (auto) 226 10^3/uL (140-450); Red Blood Cells 3.79 10^6/uL (4.5-5.90); Red Cell Distribution Width 13.7 % (11.8-14.3); White Blood Cell 13.3 10^3/uL (4.4-10.8)
[2020-05-03] MEDS: ACCU-CHEK COMFORT CURVE STRIP VI SCH ×4 (06:37→21:31)
[2020-05-03] MEDS: InsuLIN REG 1unit/0.01ml Soln (100units/ml) SC SCH ×4 (06:37→22:00)
[2020-05-03 06:44] LABS: Calcium 7.6 mg/dL (8.5-10.1); Potassium 5.4 mmol/L (3.5-5.1)
[2020-05-03 06:47] LABS: Albumin 2.2 g/dL (3.4-5.0); BUN/Creatinine Ratio 31.4
[2020-05-03] MEDS: ALBUTEROL SULF 2.5 MG/0.5ML(0.5%) NEB SOLN NEB SCH ×3 (06:47→23:18)
[2020-05-03 06:50] LABS: Bilirubin, Total 0.5 mg/dL (0.2-1.0); Total Protein 5.4 g/dL (6.4-8.2)
[2020-05-03] MEDS: DOXYCYCLINE 100MG/250ML 250 ML IV SCH (08:00)
[2020-05-03] MEDS: METOPROLOL TARTRATE 50 MG TAB PO SCH ×3 (10:00→21:31)
[2020-05-03] MEDS: ASPirin-EC 81 mg tab PO SCH ×2 (10:00→10:33)
[2020-05-03] MEDS: ZINC SULFATE 220mg CAP or TAB PO SCH ×2 (10:00→10:33)
[2020-05-03] MEDS: ASCORBIC ACID 1,000 MG TAB PO SCH ×2 (10:00→10:33)
[2020-05-03] MEDS: DOPamine 1600MCG/ML D5W 250 ML IV SCH (10:00)
[2020-05-03] MEDS: fentaNYL Drip 2500mCg/250mlNS 250 ML IV SCH (10:00)
[2020-05-03] MEDS: CHOLECALCIFEROL (VITD3) 2,000 UNIT CAP PO SCH ×2 (10:00→10:33)
[2020-05-03] MEDS: FAMOTIDINE (10MG/ML) 2ML VL IV SCH (10:33)
[2020-05-03] MEDS: DexAMETHasone SOD PHOS 10MG/1ML VIAL INJ IV SCH (10:34)
[2020-05-03] MEDS: ENOXAPARIN SOD 100 MG/1 ML SYRINGE SC SCH (10:35)
[2020-05-03] MEDS: MIDAZOLAM DRIP 50 mg/50mL 50 ML IV SCH (11:00)
[2020-05-03] MEDS: BUDESONIDE (INHALATION) 0.5 MG/2 ML NEB NEB SCH ×2 (11:07→23:17)
[2020-05-03] MEDS: METOCLOPRAMIDE HCL 5MG/ml INJ 2ml VIAL IV SCH ×2 (14:00→21:30)
[2020-05-03] MEDS: NOREPINEPHRINE 8 MG/250ML KIT 250 ML IV SCH (14:45)
[2020-05-03] MEDS ORDERED: DIGOXIN (250MCG/ML) 2 ML AMPULE ONE (16:09)
[2020-05-03] MEDS ORDERED: DIGOXIN (250MCG/ML) 2 ML AMPULE IV ONE ×2 (16:15→16:35)
[2020-05-03 18:53] LABS: BUN/Creatinine Ratio 32.5; Calcium 7.8 mg/dL (8.5-10.1)
[2020-05-03 19:09] LABS: Potassium 5.7 mmol/L (3.5-5.1)
[2020-05-03] MEDS ORDERED: BUMETANIDE 2.5mg/10ml (0.25 mg/ml) INJ IV ONE (19:45)
[2020-05-03] MEDS: ATORVASTATIN 20 MG TAB PO SCH (21:31)
[2020-05-04] VITALS (92 sets, daily range): BP systolic 86–158; BP diastolic 46–91
[2020-05-04] MEDS ORDERED: DIGOXIN (250MCG/ML) 2 ML AMPULE IV ONE (02:45)
[2020-05-04] MEDS: BUDESONIDE (INHALATION) 0.5 MG/2 ML NEB NEB SCH ×2 (05:53→22:59)
[2020-05-04] MEDS: ALBUTEROL SULF 2.5 MG/0.5ML(0.5%) NEB SOLN NEB SCH ×3 (05:53→22:59)
[2020-05-04] MEDS: METOCLOPRAMIDE HCL 5MG/ml INJ 2ml VIAL IV SCH ×3 (06:00→21:37)
[2020-05-04] MEDS: ACCU-CHEK COMFORT CURVE STRIP VI SCH ×4 (07:02→21:45)
[2020-05-04] MEDS: InsuLIN REG 1unit/0.01ml Soln (100units/ml) SC SCH ×4 (07:02→22:00)
[2020-05-04 07:55] LABS: Albumin 2.2 g/dL (3.4-5.0); Calcium 8.2 mg/dL (8.5-10.1); Potassium 5.4 mmol/L (3.5-5.1)
[2020-05-04 08:00] LABS: BUN/Creatinine Ratio 39.8; Bilirubin, Total 0.5 mg/dL (0.2-1.0); Total Protein 5.6 g/dL (6.4-8.2)
[2020-05-04 09:35] LABS: Hematocrit 37.8 % (41.0-53.0); Hemoglobin 12.3 g/dL (13.5-17.5); Mean Corpuscular Hemoglobin 30.5 pg (28.0-32.0); Mean Corpuscular Hgb Conc. 32.5 g/dL (32.0-36.0); Mean Corpuscular Volume 93.9 fL (80.0-100.0); Platelet Count (auto) 207 10^3/uL (140-450); Red Blood Cells 4.02 10^6/uL (4.5-5.90); Red Cell Distribution Width 13.5 % (11.8-14.3); White Blood Cell 14.8 10^3/uL (4.4-10.8)
[2020-05-04 09:37] LABS: Band Neutrophils % (manual) 0; Basophils % (manual) 0 (0.0-2.0); Blast Cells 0; Eosinophils % (manual) 0 (0-7); Myelocytes % 0; Promyelocytes % 0; Reactive Lymphocytes 0
[2020-05-04] MEDS ORDERED: SODIUM CHLORIDE 0.9% 500 ML IV ONE (10:00)
[2020-05-04] MEDS ORDERED: SOD CHL 0.45% 1,000 ML IV SCH (10:00)
[2020-05-04] MEDS: DOPamine 1600MCG/ML D5W 250 ML IV SCH (10:00)
[2020-05-04] MEDS ORDERED: AMIODARONE 450mg/250ml AE 250 ML IV SCH (10:15)
[2020-05-04] MEDS ORDERED: AMIODARONE HCL 150 MG in D5W 5% 100 ML IV ONE (10:15)
[2020-05-04] MEDS ORDERED: AMIODARONE HCL (50 MG/ ML) 3 ML VIAL IV ONE (10:19)
[2020-05-04] MEDS: ASPirin-EC 81 mg tab PO SCH (10:30)
[2020-05-04] MEDS: CHOLECALCIFEROL (VITD3) 2,000 UNIT CAP PO SCH (10:30)
[2020-05-04] MEDS: DexAMETHasone SOD PHOS 10MG/1ML VIAL INJ IV SCH (10:30)
[2020-05-04] MEDS: METOPROLOL TARTRATE 50 MG TAB PO SCH ×2 (10:30→21:37)
[2020-05-04] MEDS: FAMOTIDINE (10MG/ML) 2ML VL IV SCH (10:30)
[2020-05-04] MEDS: ZINC SULFATE 220mg CAP or TAB PO SCH (10:30)
[2020-05-04] MEDS: ASCORBIC ACID 1,000 MG TAB PO SCH (10:30)
[2020-05-04] MEDS: ENOXAPARIN SOD 100 MG/1 ML SYRINGE SC SCH (10:30)
[2020-05-04 10:53] LABS: Lymphocytes % (manual) 8 (10.0-50.0); Metamyelocytes % 1; Monocytes % (manual) 5 (0-12)
[2020-05-04] MEDS: SODIUM BICARBONATE 50ML VIAL 50 ML in D5W 5% 1,000 ML IV SCH (14:00)
[2020-05-04] MEDS: NOREPINEPHRINE 8 MG/250ML KIT 250 ML IV SCH (14:45)
[2020-05-04 15:53] LABS: BUN/Creatinine Ratio 44.5; Calcium 8.4 mg/dL (8.5-10.1); Potassium 5.2 mmol/L (3.5-5.1)
[2020-05-04] MEDS: AMIODARONE 450mg/250ml AE 250 ML IV SCH (16:15)
[2020-05-04] MEDS: fentaNYL Drip 2500mCg/250mlNS 250 ML IV SCH (18:30)
[2020-05-04] MEDS: ATORVASTATIN 20 MG TAB PO SCH (21:37)
[2020-05-05] VITALS (99 sets, daily range): BP systolic 129–167; BP diastolic 66–95
[2020-05-05] MEDS: SODIUM BICARBONATE 50ML VIAL 50 ML in D5W 5% 1,000 ML IV SCH ×2 (01:23→08:50)
[2020-05-05] MEDS ORDERED: SODIUM BICARBONATE 8.4% INJ 50ML SYRINGE ONE (02:24)
[2020-05-05 05:08] LABS: Basophils # (auto) 0 10 ^3/uL (0-0.2); Basophils % (auto) 0.1 % (0.0-2.0); Eosinophils # (auto) 0 10 ^3/uL (0-0.8); Eosinophils % (auto) 0.1 % (0.0-7.0); Hematocrit 35.9 % (41.0-53.0); Hemoglobin 12.1 g/dL (13.5-17.5); Lymphocytes # (auto) 0.3 10 ^3/uL (0.4-5.4); Lymphocytes % (auto) 3.1 % (10.0-50.0); Mean Corpuscular Hemoglobin 31.7 pg (28.0-32.0); Mean Corpuscular Hgb Conc. 33.6 g/dL (32.0-36.0); Mean Corpuscular Volume 94.2 fL (80.0-100.0); Monocytes # (auto) 0.5 10 ^3/uL (0-1.3); Monocytes % (auto) 4.6 % (0.0-12.0); Neutrophils # (auto) 9.5 10 ^3/uL (1.6-8.6); Neutrophils % (auto) 92.1 % (37.0-80.0); Nucleated Red Blood Cells % 0.1 %; Platelet Count (auto) 184 10^3/uL (140-450); Red Blood Cells 3.81 10^6/uL (4.5-5.90); Red Cell Distribution Width 13.3 % (11.8-14.3); White Blood Cell 10.3 10^3/uL (4.4-10.8)
[2020-05-05 05:22] LABS: Albumin 2.3 g/dL (3.4-5.0); Calcium 8.3 mg/dL (8.5-10.1); Potassium 5.1 mmol/L (3.5-5.1)
[2020-05-05 05:24] LABS: BUN/Creatinine Ratio 54.7
[2020-05-05 05:33] LABS: Bilirubin, Total 0.6 mg/dL (0.2-1.0); Total Protein 5.8 g/dL (6.4-8.2)
[2020-05-05] MEDS: METOCLOPRAMIDE HCL 5MG/ml INJ 2ml VIAL IV SCH ×3 (06:00→22:00)
[2020-05-05] MEDS: ALBUTEROL SULF 2.5 MG/0.5ML(0.5%) NEB SOLN NEB SCH ×3 (06:50→18:51)
[2020-05-05] MEDS: BUDESONIDE (INHALATION) 0.5 MG/2 ML NEB NEB SCH ×2 (06:50→18:51)
[2020-05-05] MEDS: ACCU-CHEK COMFORT CURVE STRIP VI SCH ×4 (07:02→22:00)
[2020-05-05] MEDS: InsuLIN REG 1unit/0.01ml Soln (100units/ml) SC SCH ×4 (07:02→22:00)
[2020-05-05] MEDS: AMIODARONE 450mg/250ml AE 250 ML IV SCH ×2 (07:15→22:15)
[2020-05-05] MEDS: ENOXAPARIN SOD 100 MG/1 ML SYRINGE SC SCH (10:00)
[2020-05-05] MEDS: MIDAZOLAM DRIP 50 mg/50mL 50 ML IV SCH (11:00)
[2020-05-05] MEDS: DexAMETHasone SOD PHOS 10MG/1ML VIAL INJ IV SCH (12:16)
[2020-05-05] MEDS: FAMOTIDINE (10MG/ML) 2ML VL IV SCH (12:17)
[2020-05-05] MEDS: ASPirin-EC 81 mg tab PO SCH (12:17)
[2020-05-05] MEDS: ZINC SULFATE 220mg CAP or TAB PO SCH (12:17)
[2020-05-05] MEDS: METOPROLOL TARTRATE 50 MG TAB PO SCH ×2 (12:18→22:00)
[2020-05-05] MEDS: CHOLECALCIFEROL (VITD3) 2,000 UNIT CAP PO SCH (12:18)
[2020-05-05] MEDS: ASCORBIC ACID 1,000 MG TAB PO SCH (12:18)
[2020-05-05] MEDS: NOREPINEPHRINE 8 MG/250ML KIT 250 ML IV SCH (14:45)
[2020-05-05 15:21] LABS: Hematocrit 34.4 % (41.0-53.0); Hemoglobin 11.6 g/dL (13.5-17.5)
[2020-05-05] MEDS: fentaNYL Drip 2500mCg/250mlNS 250 ML IV SCH (18:30)
[2020-05-05] MEDS: ATORVASTATIN 20 MG TAB PO SCH (22:00)
[2020-05-06] VITALS (78 sets, daily range): BP systolic 103–154; BP diastolic 64–93
[2020-05-06] MEDS: METOCLOPRAMIDE HCL 5MG/ml INJ 2ml VIAL IV SCH ×3 (06:11→22:03)
[2020-05-06] MEDS: InsuLIN REG 1unit/0.01ml Soln (100units/ml) SC SCH ×4 (06:12→22:00)
[2020-05-06 06:42] LABS: Basophils # (auto) 0 10 ^3/uL (0-0.2); Basophils % (auto) 0.2 % (0.0-2.0); Eosinophils # (auto) 0 10 ^3/uL (0-0.8); Eosinophils % (auto) 0.1 % (0.0-7.0); Hemoglobin 11.7 g/dL (13.5-17.5); Lymphocytes # (auto) 0.6 10 ^3/uL (0.4-5.4); Lymphocytes % (auto) 4.3 % (10.0-50.0); Mean Corpuscular Hemoglobin 30.9 pg (28.0-32.0); Mean Corpuscular Hgb Conc. 32.6 g/dL (32.0-36.0); Mean Corpuscular Volume 94.7 fL (80.0-100.0); Monocytes # (auto) 0.6 10 ^3/uL (0-1.3); Monocytes % (auto) 4.5 % (0.0-12.0); Neutrophils % (auto) 90.9 % (37.0-80.0); Nucleated Red Blood Cells % 0.1 %; Platelet Count (auto) 197 10^3/uL (140-450); Red Cell Distribution Width 13.6 % (11.8-14.3); White Blood Cell 14.3 10^3/uL (4.4-10.8)
[2020-05-06 06:58] LABS: Albumin 2.1 g/dL (3.4-5.0); Calcium 8.3 mg/dL (8.5-10.1); Potassium 4.5 mmol/L (3.5-5.1)
[2020-05-06 07:00] LABS: Bilirubin, Total 0.8 mg/dL (0.2-1.0); Total Protein 5.6 g/dL (6.4-8.2)
[2020-05-06] MEDS: ACCU-CHEK COMFORT CURVE STRIP VI SCH ×4 (07:00→22:04)
[2020-05-06] MEDS: BUDESONIDE (INHALATION) 0.5 MG/2 ML NEB NEB SCH ×2 (08:09→21:50)
[2020-05-06] MEDS: ALBUTEROL SULF 2.5 MG/0.5ML(0.5%) NEB SOLN NEB SCH ×3 (08:09→21:50)
[2020-05-06] MEDS ORDERED: LACTULOSE 20Gm/30ML SOLN PO ONE (09:00)
[2020-05-06] MEDS ORDERED: POLYETHYLENE GLYCOL 17 GM PWDR PO ONE (09:00)
[2020-05-06 09:57] LABS: INR 1.07 (0.9-1.15); Partial Thromboplastin Time 25.1 sec (23.0-31.2)
[2020-05-06] MEDS: ENOXAPARIN SOD 100 MG/1 ML SYRINGE SC SCH (10:00)
[2020-05-06] MEDS: DexAMETHasone SOD PHOS 10MG/1ML VIAL INJ IV SCH (10:03)
[2020-05-06] MEDS: FAMOTIDINE (10MG/ML) 2ML VL IV SCH (10:03)
[2020-05-06] MEDS: ZINC SULFATE 220mg CAP or TAB PO SCH (10:03)
[2020-05-06] MEDS: ASCORBIC ACID 1,000 MG TAB PO SCH (10:04)
[2020-05-06] MEDS: METOPROLOL TARTRATE 50 MG TAB PO SCH ×2 (10:04→22:03)
[2020-05-06] MEDS: ASPirin-EC 81 mg tab PO SCH (10:04)
[2020-05-06] MEDS: CHOLECALCIFEROL (VITD3) 2,000 UNIT CAP PO SCH (10:05)
[2020-05-06] MEDS: MIDAZOLAM DRIP 50 mg/50mL 50 ML IV SCH (11:00)
[2020-05-06] MEDS: SOD CHL 0.45% 1,000 ML IV SCH ×2 (12:33→22:20)
[2020-05-06] MEDS: AMIODARONE 450mg/250ml AE 250 ML IV SCH (13:15)
[2020-05-06] MEDS: NOREPINEPHRINE 8 MG/250ML KIT 250 ML IV SCH (14:45)
[2020-05-06] MEDS: fentaNYL Drip 2500mCg/250mlNS 250 ML IV SCH (18:30)
[2020-05-06 19:07] LABS: Urine Bacteria MANY /hpf (None Seen); Urine Blood 3+ /uL (Negative); Urine Mucus MODERATE (None Seen); Urine Specific Gravity 1.019 (1.001-1.035); Urine WBC 358 /hpf (0 - 3)
[2020-05-06] MEDS: ATORVASTATIN 20 MG TAB PO SCH (22:03)
[2020-05-07] VITALS (85 sets, daily range): BP systolic 97–143; BP diastolic 53–86
[2020-05-07] MEDS: AMIODARONE 450mg/250ml AE 250 ML IV SCH ×2 (04:15→19:15)
[2020-05-07] MEDS: BUDESONIDE (INHALATION) 0.5 MG/2 ML NEB NEB SCH ×2 (06:16→21:52)
[2020-05-07] MEDS: ALBUTEROL SULF 2.5 MG/0.5ML(0.5%) NEB SOLN NEB SCH ×3 (06:16→21:52)
[2020-05-07] MEDS: METOCLOPRAMIDE HCL 5MG/ml INJ 2ml VIAL IV SCH ×3 (06:25→21:21)
[2020-05-07] MEDS: ACCU-CHEK COMFORT CURVE STRIP VI SCH ×4 (06:25→21:22)
[2020-05-07] MEDS: InsuLIN REG 1unit/0.01ml Soln (100units/ml) SC SCH ×4 (06:25→21:22)
[2020-05-07 09:36] LABS: Albumin 2.1 g/dL (3.4-5.0); BUN/Creatinine Ratio 55.1; Potassium 4.5 mmol/L (3.5-5.1)
[2020-05-07 09:45] LABS: Bilirubin, Total 1.1 mg/dL (0.2-1.0); Total Protein 5.6 g/dL (6.4-8.2)
[2020-05-07] MEDS: ENOXAPARIN SOD 100 MG/1 ML SYRINGE SC SCH (10:00)
[2020-05-07] MEDS: MIDAZOLAM DRIP 50 mg/50mL 50 ML IV SCH (11:00)
[2020-05-07] MEDS: DexAMETHasone SOD PHOS 10MG/1ML VIAL INJ IV SCH (11:14)
[2020-05-07] MEDS: FAMOTIDINE (10MG/ML) 2ML VL IV SCH (11:14)
[2020-05-07] MEDS: ZINC SULFATE 220mg CAP or TAB PO SCH (11:14)
[2020-05-07] MEDS: METOPROLOL TARTRATE 50 MG TAB PO SCH ×2 (11:15→21:21)
[2020-05-07] MEDS: ASCORBIC ACID 1,000 MG TAB PO SCH (11:15)
[2020-05-07] MEDS: ASPirin-EC 81 mg tab PO SCH (11:15)
[2020-05-07] MEDS: CHOLECALCIFEROL (VITD3) 2,000 UNIT CAP PO SCH (11:15)
[2020-05-07] MEDS: SOD CHL 0.45% 1,000 ML IV SCH (11:48)
[2020-05-07] MEDS ORDERED: LIDOCAINE 1% (LOCAL ANESTH.) PF 5ml SDV ID ONE (13:45)
[2020-05-07] MEDS: NOREPINEPHRINE 8 MG/250ML KIT 250 ML IV SCH (14:45)
[2020-05-07] MEDS ORDERED: DIGOXIN (250MCG/ML) 2 ML AMPULE IV ONE (15:00)
[2020-05-07] MEDS: fentaNYL Drip 2500mCg/250mlNS 250 ML IV SCH (18:30)
[2020-05-07] MEDS ORDERED: cefTRIAXone 1GM/50ML D5W 50 ML IV ONE (20:45)
[2020-05-07] MEDS: ATORVASTATIN 20 MG TAB PO SCH (21:21)
[2020-05-07] MEDS: SODIUM CHLOR 0.9% PF (SALINE LOCK) 10ML VIAL/SYR IV SCH (21:21)
[2020-05-08] VITALS (94 sets, daily range): BP systolic 94–135; BP diastolic 40–81
[2020-05-08] MEDS: SOD CHL 0.45% 1,000 ML IV SCH ×2 (01:00→14:20)
[2020-05-08 03:57] LABS: Basophils # (auto) 0 10 ^3/uL (0-0.2); Basophils % (auto) 0.1 % (0.0-2.0); Eosinophils # (auto) 0 10 ^3/uL (0-0.8); Eosinophils % (auto) 0.2 % (0.0-7.0); Hematocrit 31.9 % (41.0-53.0); Hemoglobin 10.5 g/dL (13.5-17.5); Lymphocytes # (auto) 0.6 10 ^3/uL (0.4-5.4); Lymphocytes % (auto) 4.3 % (10.0-50.0); Mean Corpuscular Hemoglobin 31.4 pg (28.0-32.0); Mean Corpuscular Hgb Conc. 32.9 g/dL (32.0-36.0); Mean Corpuscular Volume 95.5 fL (80.0-100.0); Monocytes # (auto) 0.7 10 ^3/uL (0-1.3); Monocytes % (auto) 5.3 % (0.0-12.0); Neutrophils # (auto) 12.7 10 ^3/uL (1.6-8.6); Neutrophils % (auto) 90.1 % (37.0-80.0); Platelet Count (auto) 148 10^3/uL (140-450); Red Blood Cells 3.34 10^6/uL (4.5-5.90); Red Cell Distribution Width 13.5 % (11.8-14.3); White Blood Cell 14.1 10^3/uL (4.4-10.8)
[2020-05-08 04:12] LABS: Calcium 7.8 mg/dL (8.5-10.1); Potassium 4.4 mmol/L (3.5-5.1)
[2020-05-08 04:16] LABS: BUN/Creatinine Ratio 48.4; Bilirubin, Total 1.1 mg/dL (0.2-1.0); Total Protein 5.2 g/dL (6.4-8.2)
[2020-05-08] MEDS: ACCU-CHEK COMFORT CURVE STRIP VI SCH ×4 (05:52→21:08)
[2020-05-08] MEDS: InsuLIN REG 1unit/0.01ml Soln (100units/ml) SC SCH ×4 (05:52→21:08)
[2020-05-08] MEDS: METOCLOPRAMIDE HCL 5MG/ml INJ 2ml VIAL IV SCH ×3 (05:57→21:07)
[2020-05-08] MEDS: BUDESONIDE (INHALATION) 0.5 MG/2 ML NEB NEB SCH ×2 (06:10→20:36)
[2020-05-08] MEDS: ALBUTEROL SULF 2.5 MG/0.5ML(0.5%) NEB SOLN NEB SCH ×3 (06:10→20:36)
[2020-05-08] MEDS ORDERED: cefTRIAXone 1GM/50ML D5W 50 ML IV SCH (09:00)
[2020-05-08] MEDS: FAMOTIDINE (10MG/ML) 2ML VL IV SCH (09:39)
[2020-05-08] MEDS: DexAMETHasone SOD PHOS 10MG/1ML VIAL INJ IV SCH (09:39)
[2020-05-08] MEDS: METOPROLOL TARTRATE 50 MG TAB PO SCH ×2 (09:40→21:07)
[2020-05-08] MEDS: ASPirin-EC 81 mg tab PO SCH (09:40)
[2020-05-08] MEDS: ZINC SULFATE 220mg CAP or TAB PO SCH (09:40)
[2020-05-08] MEDS: CHOLECALCIFEROL (VITD3) 2,000 UNIT CAP PO SCH (09:41)
[2020-05-08] MEDS: SODIUM CHLOR 0.9% PF (SALINE LOCK) 10ML VIAL/SYR IV SCH ×2 (09:41→21:07)
[2020-05-08] MEDS: ASCORBIC ACID 1,000 MG TAB PO SCH (09:41)
[2020-05-08] MEDS: ENOXAPARIN SOD 100 MG/1 ML SYRINGE SC SCH (10:00)
[2020-05-08] MEDS: AMIODARONE 450mg/250ml AE 250 ML IV SCH (10:15)
[2020-05-08] MEDS: MIDAZOLAM DRIP 50 mg/50mL 50 ML IV SCH (11:00)
[2020-05-08] MEDS: NOREPINEPHRINE 8 MG/250ML KIT 250 ML IV SCH (14:45)
[2020-05-08] MEDS ORDERED: levoFLOXacin 750MG 150 ML IV ONE (17:00)
[2020-05-08] MEDS: fentaNYL Drip 2500mCg/250mlNS 250 ML IV SCH (18:30)
[2020-05-08] MEDS ORDERED: DIGOXIN (250MCG/ML) 2 ML AMPULE IV ONE (19:00)
[2020-05-08] MEDS: ACETAMINOPHEN 500 MG TAB PO PRN (20:37)
[2020-05-08] MEDS: ATORVASTATIN 20 MG TAB PO SCH (21:07)
[2020-05-09] VITALS (98 sets, daily range): BP systolic 100–136; BP diastolic 47–81
[2020-05-09] MEDS: AMIODARONE 450mg/250ml AE 250 ML IV SCH ×2 (01:15→16:15)
[2020-05-09 03:14] LABS: Basophils # (auto) 0 10 ^3/uL (0-0.2); Basophils % (auto) 0.3 % (0.0-2.0); Eosinophils # (auto) 0.1 10 ^3/uL (0-0.8); Eosinophils % (auto) 0.5 % (0.0-7.0); Hematocrit 29.7 % (41.0-53.0); Hemoglobin 9.7 g/dL (13.5-17.5); Lymphocytes # (auto) 0.4 10 ^3/uL (0.4-5.4); Lymphocytes % (auto) 3.2 % (10.0-50.0); Mean Corpuscular Hemoglobin 31.2 pg (28.0-32.0); Mean Corpuscular Hgb Conc. 32.5 g/dL (32.0-36.0); Monocytes # (auto) 0.7 10 ^3/uL (0-1.3); Monocytes % (auto) 4.8 % (0.0-12.0); Neutrophils # (auto) 12.3 10 ^3/uL (1.6-8.6); Neutrophils % (auto) 91.2 % (37.0-80.0); Platelet Count (auto) 130 10^3/uL (140-450); Red Cell Distribution Width 13.5 % (11.8-14.3); White Blood Cell 13.5 10^3/uL (4.4-10.8)
[2020-05-09 03:30] LABS: Albumin 1.8 g/dL (3.4-5.0); Calcium 7.7 mg/dL (8.5-10.1); Potassium 4.4 mmol/L (3.5-5.1)
[2020-05-09 03:34] LABS: BUN/Creatinine Ratio 46.6; Total Protein 5.3 g/dL (6.4-8.2)
[2020-05-09] MEDS: SOD CHL 0.45% 1,000 ML IV SCH (03:40)
[2020-05-09] MEDS: METOCLOPRAMIDE HCL 5MG/ml INJ 2ml VIAL IV SCH ×3 (05:45→21:28)
[2020-05-09] MEDS: InsuLIN REG 1unit/0.01ml Soln (100units/ml) SC SCH ×4 (05:46→21:31)
[2020-05-09] MEDS: ACCU-CHEK COMFORT CURVE STRIP VI SCH ×4 (05:46→21:29)
[2020-05-09] MEDS: ALBUTEROL SULF 2.5 MG/0.5ML(0.5%) NEB SOLN NEB SCH (06:22)
[2020-05-09] MEDS: BUDESONIDE (INHALATION) 0.5 MG/2 ML NEB NEB SCH ×2 (06:23→23:39)
[2020-05-09] MEDS ORDERED: DIGOXIN (250MCG/ML) 2 ML AMPULE IV ONE (06:45)
[2020-05-09] MEDS: D5W 5% 1,000 ML IV SCH ×2 (08:30→21:29)
[2020-05-09] MEDS ORDERED: LACTULOSE 20Gm/30ML SOLN PO ONE (09:45)
[2020-05-09] MEDS ORDERED: PANTOPRAZOLE 40 MG/10 ML VIAL INJ IV SCH (10:00)
[2020-05-09] MEDS: SODIUM CHLOR 0.9% PF (SALINE LOCK) 10ML VIAL/SYR IV SCH ×2 (10:00→21:29)
[2020-05-09] MEDS: ZINC SULFATE 220mg CAP or TAB PO SCH (10:30)
[2020-05-09] MEDS: DexAMETHasone SOD PHOS 10MG/1ML VIAL INJ IV SCH (10:30)
[2020-05-09] MEDS: METOPROLOL TARTRATE 50 MG TAB PO SCH ×2 (10:31→22:00)
[2020-05-09] MEDS: CHOLECALCIFEROL (VITD3) 2,000 UNIT CAP PO SCH (10:31)
[2020-05-09] MEDS: ENOXAPARIN SOD 100 MG/1 ML SYRINGE SC SCH ×2 (10:32→22:00)
[2020-05-09] MEDS: ASCORBIC ACID 1,000 MG TAB PO SCH (10:32)
[2020-05-09] MEDS: MIDAZOLAM DRIP 50 mg/50mL 50 ML IV SCH (11:00)
[2020-05-09] MEDS: NOREPINEPHRINE 8 MG/250ML KIT 250 ML IV SCH (14:45)
[2020-05-09] MEDS: levoFLOXacin 500MG 100 ML IV SCH (17:00)
[2020-05-09] MEDS: fentaNYL Drip 2500mCg/250mlNS 250 ML IV SCH (18:30)
[2020-05-09] MEDS: PANTOPRAZOLE 40 MG/10 ML VIAL INJ IV SCH (21:29)
[2020-05-09] MEDS: ATORVASTATIN 20 MG TAB PO SCH (22:00)
[2020-05-10] VITALS (82 sets, daily range): BP systolic 106–145; BP diastolic 49–75
[2020-05-10 02:20] LABS: Basophils # (auto) 0.1 10 ^3/uL (0-0.2); Basophils % (auto) 0.6 % (0.0-2.0); Eosinophils # (auto) 0 10 ^3/uL (0-0.8); Eosinophils % (auto) 0.5 % (0.0-7.0); Hematocrit 27.9 % (41.0-53.0); Hemoglobin 9.2 g/dL (13.5-17.5); Lymphocytes # (auto) 0.4 10 ^3/uL (0.4-5.4); Lymphocytes % (auto) 4.4 % (10.0-50.0); Mean Corpuscular Hemoglobin 31.7 pg (28.0-32.0); Mean Corpuscular Hgb Conc. 33.1 g/dL (32.0-36.0); Mean Corpuscular Volume 95.7 fL (80.0-100.0); Monocytes # (auto) 0.5 10 ^3/uL (0-1.3); Neutrophils # (auto) 8.7 10 ^3/uL (1.6-8.6); Neutrophils % (auto) 89.5 % (37.0-80.0); Nucleated Red Blood Cells % 0.1 %; Platelet Count (auto) 109 10^3/uL (140-450); Red Blood Cells 2.92 10^6/uL (4.5-5.90); Red Cell Distribution Width 13.4 % (11.8-14.3); White Blood Cell 9.7 10^3/uL (4.4-10.8)
[2020-05-10 02:40] LABS: Albumin 1.8 g/dL (3.4-5.0); BUN/Creatinine Ratio 43.2; Calcium 7.4 mg/dL (8.5-10.1)
[2020-05-10 02:41] LABS: Bilirubin, Total 0.7 mg/dL (0.2-1.0)
[2020-05-10] MEDS: METOCLOPRAMIDE HCL 5MG/ml INJ 2ml VIAL IV SCH ×3 (06:27→21:42)
[2020-05-10] MEDS: ACCU-CHEK COMFORT CURVE STRIP VI SCH ×4 (06:27→22:00)
[2020-05-10] MEDS: InsuLIN REG 1unit/0.01ml Soln (100units/ml) SC SCH ×4 (06:28→22:00)
[2020-05-10] MEDS: AMIODARONE 450mg/250ml AE 250 ML IV SCH ×2 (07:15→22:15)
[2020-05-10] MEDS: ASCORBIC ACID 1,000 MG TAB PO SCH (09:25)
[2020-05-10] MEDS: ZINC SULFATE 220mg CAP or TAB PO SCH (09:25)
[2020-05-10] MEDS ORDERED: ENOXAPARIN SOD 120 MG/0.8 ML SYRINGE SC ONE (09:25)
[2020-05-10] MEDS: DexAMETHasone SOD PHOS 10MG/1ML VIAL INJ IV SCH (09:26)
[2020-05-10] MEDS: CHOLECALCIFEROL (VITD3) 2,000 UNIT CAP PO SCH (09:26)
[2020-05-10] MEDS: METOPROLOL TARTRATE 50 MG TAB PO SCH ×2 (09:26→21:43)
[2020-05-10] MEDS: ENOXAPARIN SOD 100 MG/1 ML SYRINGE SC SCH (09:26)
[2020-05-10] MEDS: SODIUM CHLOR 0.9% PF (SALINE LOCK) 10ML VIAL/SYR IV SCH ×2 (09:27→21:42)
[2020-05-10] MEDS: PANTOPRAZOLE 40 MG/10 ML VIAL INJ IV SCH ×2 (09:27→21:42)
[2020-05-10] MEDS: BUDESONIDE (INHALATION) 0.5 MG/2 ML NEB NEB SCH ×2 (10:00→21:45)
[2020-05-10] MEDS: MIDAZOLAM DRIP 50 mg/50mL 50 ML IV SCH (11:00)
[2020-05-10] MEDS: D5W 5% 1,000 ML IV SCH (12:20)
[2020-05-10] MEDS: NOREPINEPHRINE 8 MG/250ML KIT 250 ML IV SCH (14:45)
[2020-05-10] MEDS: levoFLOXacin 500MG 100 ML IV SCH (16:45)
[2020-05-10] MEDS: fentaNYL Drip 2500mCg/250mlNS 250 ML IV SCH (18:30)
[2020-05-10] MEDS: ATORVASTATIN 20 MG TAB PO SCH (21:42)
[2020-05-11] VITALS (97 sets, daily range): BP systolic 94–134; BP diastolic 49–74
[2020-05-11] MEDS: D5W 5% 1,000 ML IV SCH ×2 (00:30→14:01)
[2020-05-11 04:26] LABS: Basophils # (auto) 0 10 ^3/uL (0-0.2); Basophils % (auto) 0.3 % (0.0-2.0); Eosinophils # (auto) 0.1 10 ^3/uL (0-0.8); Lymphocytes # (auto) 0.4 10 ^3/uL (0.4-5.4); Monocytes # (auto) 0.5 10 ^3/uL (0-1.3)
[2020-05-11 04:28] LABS: Eosinophils % (auto) 0.9 % (0.0-7.0); Hematocrit 24.8 % (41.0-53.0); Hemoglobin 8.2 g/dL (13.5-17.5); Lymphocytes % (auto) 5.1 % (10.0-50.0); Mean Corpuscular Hemoglobin 31.6 pg (28.0-32.0); Mean Corpuscular Hgb Conc. 33.3 g/dL (32.0-36.0); Mean Corpuscular Volume 95.1 fL (80.0-100.0); Monocytes % (auto) 5.7 % (0.0-12.0); Neutrophils # (auto) 7.6 10 ^3/uL (1.6-8.6); Platelet Count (auto) 112 10^3/uL (140-450); Red Cell Distribution Width 13.3 % (11.8-14.3); White Blood Cell 8.6 10^3/uL (4.4-10.8)
[2020-05-11 05:05] LABS: Potassium 4.2 mmol/L (3.5-5.1)
[2020-05-11 05:12] LABS: BUN/Creatinine Ratio 45.1; Calcium 7.5 mg/dL (8.5-10.1)
[2020-05-11] MEDS: METOCLOPRAMIDE HCL 5MG/ml INJ 2ml VIAL IV SCH ×3 (06:00→20:44)
[2020-05-11] MEDS: BUDESONIDE (INHALATION) 0.5 MG/2 ML NEB NEB SCH ×2 (06:31→22:32)
[2020-05-11] MEDS: ACCU-CHEK COMFORT CURVE STRIP VI SCH ×4 (06:39→23:08)
[2020-05-11] MEDS: InsuLIN REG 1unit/0.01ml Soln (100units/ml) SC SCH ×4 (06:39→23:07)
[2020-05-11] MEDS ORDERED: ENOXAPARIN SOD 40 MG/0.4 ML SYRINGE SC SCH (10:00)
[2020-05-11] MEDS: DexAMETHasone SOD PHOS 10MG/1ML VIAL INJ IV SCH (10:37)
[2020-05-11] MEDS: PANTOPRAZOLE 40 MG/10 ML VIAL INJ IV SCH ×2 (10:40→20:44)
[2020-05-11] MEDS: SODIUM CHLOR 0.9% PF (SALINE LOCK) 10ML VIAL/SYR IV SCH ×2 (10:41→20:44)
[2020-05-11] MEDS: ZINC SULFATE 220mg CAP or TAB PO SCH (10:41)
[2020-05-11] MEDS: CHOLECALCIFEROL (VITD3) 2,000 UNIT CAP PO SCH (10:42)
[2020-05-11] MEDS: MIDAZOLAM DRIP 50 mg/50mL 50 ML IV SCH (10:42)
[2020-05-11] MEDS: ASCORBIC ACID 1,000 MG TAB PO SCH (10:42)
[2020-05-11] MEDS: METOPROLOL TARTRATE 50 MG TAB PO SCH ×2 (10:42→20:46)
[2020-05-11] MEDS: AMIODARONE 450mg/250ml AE 250 ML IV SCH (13:15)
[2020-05-11] MEDS: NOREPINEPHRINE 8 MG/250ML KIT 250 ML IV SCH (14:02)
[2020-05-11] MEDS: levoFLOXacin 500MG 100 ML IV SCH (17:43)
[2020-05-11] MEDS: fentaNYL Drip 2500mCg/250mlNS 250 ML IV SCH (18:30)
[2020-05-11] MEDS: ATORVASTATIN 20 MG TAB PO SCH (20:45)
[2020-05-12] VITALS (93 sets, daily range): BP systolic 87–142; BP diastolic 51–88
[2020-05-12] MEDS: ACETAMINOPHEN 500 MG TAB PO PRN (01:08)
[2020-05-12] MEDS: D5W 5% 1,000 ML IV SCH ×2 (03:55→16:30)
[2020-05-12] MEDS: AMIODARONE 450mg/250ml AE 250 ML IV SCH (04:15)
[2020-05-12 05:40] LABS: Basophils # (auto) 0 10 ^3/uL (0-0.2); Eosinophils # (auto) 0.1 10 ^3/uL (0-0.8); Hemoglobin 7.9 g/dL (13.5-17.5); Mean Corpuscular Volume 94.8 fL (80.0-100.0)
[2020-05-12 05:43] LABS: Basophils % (auto) 0.2 % (0.0-2.0); Eosinophils % (auto) 0.9 % (0.0-7.0); Hematocrit 23.6 % (41.0-53.0); Lymphocytes # (auto) 0.5 10 ^3/uL (0.4-5.4); Lymphocytes % (auto) 6.2 % (10.0-50.0); Mean Corpuscular Hemoglobin 31.9 pg (28.0-32.0); Mean Corpuscular Hgb Conc. 33.6 g/dL (32.0-36.0); Monocytes # (auto) 0.4 10 ^3/uL (0-1.3); Monocytes % (auto) 5.4 % (0.0-12.0); Neutrophils # (auto) 6.4 10 ^3/uL (1.6-8.6); Neutrophils % (auto) 87.3 % (37.0-80.0); Platelet Count (auto) 91 10^3/uL (140-450); Red Blood Cells 2.49 10^6/uL (4.5-5.90); Red Cell Distribution Width 13.2 % (11.8-14.3); White Blood Cell 7.4 10^3/uL (4.4-10.8)
[2020-05-12 06:03] LABS: Calcium 7.4 mg/dL (8.5-10.1); Potassium 3.9 mmol/L (3.5-5.1)
[2020-05-12 06:07] LABS: Albumin 1.7 g/dL (3.4-5.0); BUN/Creatinine Ratio 41.4
[2020-05-12 06:09] LABS: Bilirubin, Total 0.7 mg/dL (0.2-1.0); Total Protein 4.7 g/dL (6.4-8.2)
[2020-05-12] MEDS: METOCLOPRAMIDE HCL 5MG/ml INJ 2ml VIAL IV SCH ×3 (06:21→22:00)
[2020-05-12] MEDS: InsuLIN REG 1unit/0.01ml Soln (100units/ml) SC SCH ×3 (06:24→22:00)
[2020-05-12] MEDS: ACCU-CHEK COMFORT CURVE STRIP VI SCH ×3 (06:24→22:02)
[2020-05-12] MEDS: BUDESONIDE (INHALATION) 0.5 MG/2 ML NEB NEB SCH ×2 (08:41→18:53)
[2020-05-12] MEDS: PANTOPRAZOLE 40 MG/10 ML VIAL INJ IV SCH ×2 (10:30→22:00)
[2020-05-12] MEDS: ASCORBIC ACID 1,000 MG TAB PO SCH (10:30)
[2020-05-12] MEDS: METOPROLOL TARTRATE 50 MG TAB PO SCH ×2 (10:31→22:00)
[2020-05-12] MEDS: ZINC SULFATE 220mg CAP or TAB PO SCH (10:31)
[2020-05-12] MEDS: SODIUM CHLOR 0.9% PF (SALINE LOCK) 10ML VIAL/SYR IV SCH ×2 (10:31→22:01)
[2020-05-12] MEDS: DexAMETHasone SOD PHOS 10MG/1ML VIAL INJ IV SCH (10:31)
[2020-05-12] MEDS: CHOLECALCIFEROL (VITD3) 2,000 UNIT CAP PO SCH (10:31)
[2020-05-12] MEDS: MIDAZOLAM DRIP 50 mg/50mL 50 ML IV SCH (11:00)
[2020-05-12] MEDS: NOREPINEPHRINE 8 MG/250ML KIT 250 ML IV SCH (14:45)
[2020-05-12] MEDS: levoFLOXacin 500MG 100 ML IV SCH (17:21)
[2020-05-12] MEDS: fentaNYL Drip 2500mCg/250mlNS 250 ML IV SCH (18:30)
[2020-05-12] MEDS: ATORVASTATIN 20 MG TAB PO SCH (22:00)
[2020-05-13] VITALS (95 sets, daily range): BP systolic 87–129; BP diastolic 49–76
[2020-05-13] MEDS: fentaNYL Drip 2500mCg/250mlNS 250 ML IV SCH (00:36)
[2020-05-13] MEDS: METOCLOPRAMIDE HCL 5MG/ml INJ 2ml VIAL IV SCH ×3 (05:53→21:35)
[2020-05-13] MEDS: D5W 5% 1,000 ML IV SCH ×2 (05:53→19:10)
[2020-05-13 06:09] LABS: Basophils # (auto) 0 10 ^3/uL (0-0.2); Eosinophils # (auto) 0.1 10 ^3/uL (0-0.8); Lymphocytes # (auto) 0.4 10 ^3/uL (0.4-5.4); Neutrophils # (auto) 5.3 10 ^3/uL (1.6-8.6); White Blood Cell 6.1 10^3/uL (4.4-10.8)
[2020-05-13 06:12] LABS: Basophils % (auto) 0.2 % (0.0-2.0); Eosinophils % (auto) 1.4 % (0.0-7.0); Hematocrit 22.8 % (41.0-53.0); Hemoglobin 7.7 g/dL (13.5-17.5); Lymphocytes % (auto) 6.8 % (10.0-50.0); Mean Corpuscular Hemoglobin 32.3 pg (28.0-32.0); Monocytes # (auto) 0.4 10 ^3/uL (0-1.3); Monocytes % (auto) 5.7 % (0.0-12.0); Neutrophils % (auto) 85.9 % (37.0-80.0); Platelet Count (auto) 87 10^3/uL (140-450); Red Blood Cells 2.39 10^6/uL (4.5-5.90); Red Cell Distribution Width 13.2 % (11.8-14.3)
[2020-05-13] MEDS: ACCU-CHEK COMFORT CURVE STRIP VI SCH ×4 (06:29→21:36)
[2020-05-13] MEDS: InsuLIN REG 1unit/0.01ml Soln (100units/ml) SC SCH ×4 (06:30→21:36)
[2020-05-13] MEDS: ARMODAFINIL 150 MG TAB PO SCH (06:30)
[2020-05-13] MEDS: SODIUM CHLOR 0.9% PF (SALINE LOCK) 10ML VIAL/SYR IV SCH ×2 (10:00→21:35)
[2020-05-13] MEDS: AMIODARONE 450mg/250ml AE 250 ML IV SCH (10:15)
[2020-05-13] MEDS: BUDESONIDE (INHALATION) 0.5 MG/2 ML NEB NEB SCH ×2 (10:19→22:47)
[2020-05-13] MEDS: METOPROLOL TARTRATE 50 MG TAB PO SCH ×2 (10:30→21:37)
[2020-05-13] MEDS: MIDAZOLAM DRIP 50 mg/50mL 50 ML IV SCH (11:00)
[2020-05-13] MEDS: PANTOPRAZOLE 40 MG/10 ML VIAL INJ IV SCH ×2 (13:24→21:35)
[2020-05-13] MEDS: LACTULOSE 20Gm/30ML SOLN PO SCH (13:27)
[2020-05-13] MEDS: ZINC SULFATE 220mg CAP or TAB PO SCH (13:27)
[2020-05-13] MEDS: ASCORBIC ACID 1,000 MG TAB PO SCH (13:28)
[2020-05-13] MEDS: CHOLECALCIFEROL (VITD3) 2,000 UNIT CAP PO SCH (13:28)
[2020-05-13] MEDS: NOREPINEPHRINE 8 MG/250ML KIT 250 ML IV SCH (14:45)
[2020-05-13] MEDS ORDERED: FUROSEMIDE 40 MG/4 ML VIAL IV ONE (16:00)
[2020-05-13] MEDS: levoFLOXacin 500MG 100 ML IV SCH (17:00)
[2020-05-13] MEDS: ATORVASTATIN 20 MG TAB PO SCH (21:36)
[2020-05-14] VITALS (41 sets, daily range): BP systolic 101–132; BP diastolic 53–74
[2020-05-14] MEDS: AMIODARONE 450mg/250ml AE 250 ML IV SCH (01:15)
[2020-05-14 03:58] LABS: Basophils # (auto) 0 10 ^3/uL (0-0.2); Basophils % (auto) 0.4 % (0.0-2.0); Eosinophils # (auto) 0.1 10 ^3/uL (0-0.8); Eosinophils % (auto) 1.5 % (0.0-7.0); Hematocrit 29.4 % (41.0-53.0); Hemoglobin 10.2 g/dL (13.5-17.5); Lymphocytes # (auto) 0.3 10 ^3/uL (0.4-5.4); Lymphocytes % (auto) 4.9 % (10.0-50.0); Mean Corpuscular Hemoglobin 31.9 pg (28.0-32.0); Mean Corpuscular Hgb Conc. 34.7 g/dL (32.0-36.0); Mean Corpuscular Volume 92.1 fL (80.0-100.0); Monocytes # (auto) 0.4 10 ^3/uL (0-1.3); Monocytes % (auto) 5.6 % (0.0-12.0); Neutrophils # (auto) 6.1 10 ^3/uL (1.6-8.6); Neutrophils % (auto) 87.6 % (37.0-80.0); Platelet Count (auto) 93 10^3/uL (140-450); Red Blood Cells 3.19 10^6/uL (4.5-5.90); Red Cell Distribution Width 13.9 % (11.8-14.3)
[2020-05-14 04:04] LABS: BUN/Creatinine Ratio 32.1; Calcium 7.5 mg/dL (8.5-10.1); Potassium 3.5 mmol/L (3.5-5.1)
[2020-05-14] MEDS: D5W 5% 1,000 ML IV SCH ×2 (06:00→23:13)
[2020-05-14] MEDS: METOCLOPRAMIDE HCL 5MG/ml INJ 2ml VIAL IV SCH ×3 (06:00→22:14)
[2020-05-14] MEDS: BUDESONIDE (INHALATION) 0.5 MG/2 ML NEB NEB SCH ×2 (06:34→22:00)
[2020-05-14] MEDS: ACCU-CHEK COMFORT CURVE STRIP VI SCH ×4 (06:56→22:16)
[2020-05-14] MEDS: ARMODAFINIL 150 MG TAB PO SCH (06:56)
[2020-05-14] MEDS: InsuLIN REG 1unit/0.01ml Soln (100units/ml) SC SCH ×4 (06:56→22:00)
[2020-05-14] MEDS: METOPROLOL TARTRATE 50 MG TAB PO SCH ×2 (10:20→22:00)
[2020-05-14] MEDS: ASCORBIC ACID 1,000 MG TAB PO SCH (10:20)
[2020-05-14] MEDS: LACTULOSE 20Gm/30ML SOLN PO SCH (10:20)
[2020-05-14] MEDS: CHOLECALCIFEROL (VITD3) 2,000 UNIT CAP PO SCH (10:20)
[2020-05-14] MEDS: PANTOPRAZOLE 40 MG/10 ML VIAL INJ IV SCH ×2 (10:20→22:14)
[2020-05-14] MEDS: ZINC SULFATE 220mg CAP or TAB PO SCH (10:20)
[2020-05-14] MEDS: SODIUM CHLOR 0.9% PF (SALINE LOCK) 10ML VIAL/SYR IV SCH ×2 (10:20→22:14)
[2020-05-14] MEDS: levoFLOXacin 500MG 100 ML IV SCH (17:20)
[2020-05-14] MEDS: ATORVASTATIN 20 MG TAB PO SCH (22:14)
[2020-05-15 05:18] VITALS: BP 113/68
[2020-05-15] MEDS: ACCU-CHEK COMFORT CURVE STRIP VI SCH ×4 (06:09→21:55)
[2020-05-15] MEDS: METOCLOPRAMIDE HCL 5MG/ml INJ 2ml VIAL IV SCH ×3 (06:09→22:05)
[2020-05-15] MEDS: InsuLIN REG 1unit/0.01ml Soln (100units/ml) SC SCH ×4 (06:10→21:55)
[2020-05-15] MEDS: ARMODAFINIL 150 MG TAB PO SCH (07:31)
[2020-05-15 09:00] VITALS: BP 110/55
[2020-05-15] MEDS: SODIUM CHLOR 0.9% PF (SALINE LOCK) 10ML VIAL/SYR IV SCH ×2 (09:44→21:55)
[2020-05-15] MEDS: PANTOPRAZOLE 40 MG/10 ML VIAL INJ IV SCH ×2 (09:44→22:05)
[2020-05-15] MEDS: LACTULOSE 20Gm/30ML SOLN PO SCH (09:45)
[2020-05-15] MEDS: ZINC SULFATE 220mg CAP or TAB PO SCH (09:46)
[2020-05-15] MEDS: METOPROLOL TARTRATE 50 MG TAB PO SCH ×2 (09:47→22:05)
[2020-05-15] MEDS: CHOLECALCIFEROL (VITD3) 2,000 UNIT CAP PO SCH (09:48)
[2020-05-15] MEDS: ASCORBIC ACID 1,000 MG TAB PO SCH (09:48)
[2020-05-15] MEDS: BUDESONIDE (INHALATION) 0.5 MG/2 ML NEB NEB SCH ×2 (10:00→18:58)
[2020-05-15] MEDS: D5W 5% 1,000 ML IV SCH (11:10)
[2020-05-15 13:00] VITALS: BP 118/71
[2020-05-15] MEDS: levoFLOXacin 500MG 100 ML IV SCH (17:26)
[2020-05-15] MEDS: ATORVASTATIN 20 MG TAB PO SCH (22:05)
[2020-05-16] MEDS: D5W 5% 1,000 ML IV SCH ×2 (00:30→13:50)
[2020-05-16 05:00] VITALS: BP 119/70
[2020-05-16] MEDS: ACCU-CHEK COMFORT CURVE STRIP VI SCH ×4 (06:30→21:38)
[2020-05-16] MEDS: METOCLOPRAMIDE HCL 5MG/ml INJ 2ml VIAL IV SCH ×3 (06:30→21:37)
[2020-05-16] MEDS: InsuLIN REG 1unit/0.01ml Soln (100units/ml) SC SCH ×4 (06:53→22:00)
[2020-05-16 07:45] LABS: Basophils # (auto) 0 10 ^3/uL (0-0.2); Basophils % (auto) 0.4 % (0.0-2.0); Eosinophils # (auto) 0.1 10 ^3/uL (0-0.8); Eosinophils % (auto) 2.4 % (0.0-7.0); Hemoglobin 10.1 g/dL (13.5-17.5); Lymphocytes # (auto) 0.3 10 ^3/uL (0.4-5.4); Lymphocytes % (auto) 5.5 % (10.0-50.0); Mean Corpuscular Hemoglobin 32.4 pg (28.0-32.0); Mean Corpuscular Hgb Conc. 34.8 g/dL (32.0-36.0); Mean Corpuscular Volume 93.1 fL (80.0-100.0); Monocytes # (auto) 0.5 10 ^3/uL (0-1.3); Monocytes % (auto) 8.9 % (0.0-12.0); Neutrophils # (auto) 4.7 10 ^3/uL (1.6-8.6); Neutrophils % (auto) 82.8 % (37.0-80.0); Platelet Count (auto) 94 10^3/uL (140-450); Red Blood Cells 3.12 10^6/uL (4.5-5.90); Red Cell Distribution Width 13.6 % (11.8-14.3); White Blood Cell 5.6 10^3/uL (4.4-10.8)
[2020-05-16 09:00] VITALS: BP 101/58
[2020-05-16] MEDS: BUDESONIDE (INHALATION) 0.5 MG/2 ML NEB NEB SCH ×2 (10:00→21:42)
[2020-05-16] MEDS: ASCORBIC ACID 1,000 MG TAB PO SCH (11:20)
[2020-05-16] MEDS: ZINC SULFATE 220mg CAP or TAB PO SCH (11:20)
[2020-05-16] MEDS: CHOLECALCIFEROL (VITD3) 2,000 UNIT CAP PO SCH (11:20)
[2020-05-16] MEDS: PANTOPRAZOLE 40 MG/10 ML VIAL INJ IV SCH ×2 (11:20→21:37)
[2020-05-16] MEDS: METOPROLOL TARTRATE 50 MG TAB PO SCH ×2 (11:20→21:38)
[2020-05-16] MEDS: SODIUM CHLOR 0.9% PF (SALINE LOCK) 10ML VIAL/SYR IV SCH ×2 (11:20→21:37)
[2020-05-16] MEDS: LACTULOSE 20Gm/30ML SOLN PO SCH (11:20)
[2020-05-16 13:00] VITALS: BP 116/67
[2020-05-16] MEDS: levoFLOXacin 500MG 100 ML IV SCH (16:45)
[2020-05-16 17:00] VITALS: BP 102/65
[2020-05-16 21:00] VITALS: BP 109/59
[2020-05-16] MEDS: ATORVASTATIN 20 MG TAB PO SCH (21:37)
[2020-05-17 05:00] VITALS: BP 136/68
[2020-05-17] MEDS: D5W 5% 1,000 ML IV SCH (05:07)
[2020-05-17] MEDS: METOCLOPRAMIDE HCL 5MG/ml INJ 2ml VIAL IV SCH ×3 (05:07→21:14)
[2020-05-17] MEDS: SODIUM CHLOR 0.9% PF (SALINE LOCK) 10ML VIAL/SYR IV SCH ×2 (05:08→21:15)
[2020-05-17] MEDS: ACCU-CHEK COMFORT CURVE STRIP VI SCH (05:08)
[2020-05-17] MEDS: InsuLIN REG 1unit/0.01ml Soln (100units/ml) SC SCH (05:08)
[2020-05-17 07:35] LABS: Basophils # (auto) 0 10 ^3/uL (0-0.2); Basophils % (auto) 0.3 % (0.0-2.0); Eosinophils # (auto) 0.2 10 ^3/uL (0-0.8); Eosinophils % (auto) 4.3 % (0.0-7.0); Hematocrit 29.7 % (41.0-53.0); Lymphocytes # (auto) 0.3 10 ^3/uL (0.4-5.4); Lymphocytes % (auto) 6.5 % (10.0-50.0); Mean Corpuscular Hemoglobin 31.6 pg (28.0-32.0); Mean Corpuscular Hgb Conc. 33.8 g/dL (32.0-36.0); Mean Corpuscular Volume 93.6 fL (80.0-100.0); Monocytes # (auto) 0.5 10 ^3/uL (0-1.3); Monocytes % (auto) 9.4 % (0.0-12.0); Neutrophils # (auto) 4.3 10 ^3/uL (1.6-8.6); Neutrophils % (auto) 79.5 % (37.0-80.0); Platelet Count (auto) 98 10^3/uL (140-450); Red Blood Cells 3.17 10^6/uL (4.5-5.90); Red Cell Distribution Width 13.8 % (11.8-14.3); White Blood Cell 5.4 10^3/uL (4.4-10.8)
[2020-05-17 08:00] LABS: Albumin 1.6 g/dL (3.4-5.0); BUN/Creatinine Ratio 21.1; Calcium 7.3 mg/dL (8.5-10.1); Potassium 3.3 mmol/L (3.5-5.1)
[2020-05-17 08:03] LABS: Bilirubin, Total 1.1 mg/dL (0.2-1.0)
[2020-05-17 09:00] VITALS: BP 123/61
[2020-05-17] MEDS: ASCORBIC ACID 1,000 MG TAB PO SCH (09:46)
[2020-05-17] MEDS: CHOLECALCIFEROL (VITD3) 2,000 UNIT CAP PO SCH (09:46)
[2020-05-17] MEDS: ZINC SULFATE 220mg CAP or TAB PO SCH (09:46)
[2020-05-17] MEDS: PANTOPRAZOLE 40 MG/10 ML VIAL INJ IV SCH ×2 (09:47→21:14)
[2020-05-17] MEDS: LACTULOSE 20Gm/30ML SOLN PO SCH (09:47)
[2020-05-17] MEDS: BUDESONIDE (INHALATION) 0.5 MG/2 ML NEB NEB SCH ×2 (10:00→19:28)
[2020-05-17] MEDS: METOPROLOL TARTRATE 50 MG TAB PO SCH ×2 (10:30→21:16)
[2020-05-17 13:00] VITALS: BP 113/69
[2020-05-17] MEDS ORDERED: POTASSIUM EFFERVESENT TAB 25 MEQ PO ONE (16:15)
[2020-05-17 17:00] VITALS: BP 107/63
[2020-05-17] MEDS: ATORVASTATIN 20 MG TAB PO SCH (21:15)
[2020-05-18 05:30] VITALS: BP 117/79
[2020-05-18] MEDS: METOCLOPRAMIDE HCL 5MG/ml INJ 2ml VIAL IV SCH ×3 (05:52→21:29)
[2020-05-18] MEDS: BUDESONIDE (INHALATION) 0.5 MG/2 ML NEB NEB SCH (06:25)
[2020-05-18 09:00] VITALS: BP_SYST 103; BP_SYST 114; BP_DIAS 59; BP_DIAS 65
[2020-05-18] MEDS: ASCORBIC ACID 1,000 MG TAB PO SCH (10:00)
[2020-05-18] MEDS: CHOLECALCIFEROL (VITD3) 2,000 UNIT CAP PO SCH (10:00)
[2020-05-18] MEDS: ZINC SULFATE 220mg CAP or TAB PO SCH (10:00)
[2020-05-18] MEDS: PANTOPRAZOLE 40 MG/10 ML VIAL INJ IV SCH ×2 (11:02→21:29)
[2020-05-18] MEDS: SODIUM CHLOR 0.9% PF (SALINE LOCK) 10ML VIAL/SYR IV SCH ×2 (11:03→21:30)
[2020-05-18] MEDS: LACTULOSE 20Gm/30ML SOLN PO SCH (11:03)
[2020-05-18] MEDS: levoFLOXacin 500 MG TAB PO SCH (11:03)
[2020-05-18] MEDS: METOPROLOL TARTRATE 50 MG TAB PO SCH ×2 (11:04→21:30)
[2020-05-18 13:00] VITALS: BP 156/69
[2020-05-18 17:00] VITALS: BP_SYST 114; BP_SYST 115; BP_DIAS 66; BP_DIAS 77
[2020-05-18] MEDS: ATORVASTATIN 20 MG TAB PO SCH (21:30)
[2020-05-19] MEDS: METOCLOPRAMIDE HCL 5MG/ml INJ 2ml VIAL IV SCH ×3 (05:37→22:43)
[2020-05-19 09:00] VITALS: BP 117/68
[2020-05-19] MEDS: SODIUM CHLOR 0.9% PF (SALINE LOCK) 10ML VIAL/SYR IV SCH ×2 (10:00→22:44)
[2020-05-19] MEDS: LACTULOSE 20Gm/30ML SOLN PO SCH (10:49)
[2020-05-19] MEDS: ZINC SULFATE 220mg CAP or TAB PO SCH (10:49)
[2020-05-19] MEDS: PANTOPRAZOLE 40 MG/10 ML VIAL INJ IV SCH ×2 (10:49→22:43)
[2020-05-19] MEDS: levoFLOXacin 500 MG TAB PO SCH (10:50)
[2020-05-19] MEDS: METOPROLOL TARTRATE 50 MG TAB PO SCH ×2 (10:50→23:07)
[2020-05-19] MEDS: CHOLECALCIFEROL (VITD3) 2,000 UNIT CAP PO SCH (10:51)
[2020-05-19] MEDS: ASCORBIC ACID 1,000 MG TAB PO SCH (10:51)
[2020-05-19 13:00] VITALS: BP 132/65
[2020-05-19 17:00] VITALS: BP 115/65
[2020-05-19 22:00] VITALS: BP 111/68
[2020-05-19] MEDS: ATORVASTATIN 20 MG TAB PO SCH (22:44)
[2020-05-20 05:00] VITALS: BP 117/58
[2020-05-20] MEDS: METOCLOPRAMIDE HCL 5MG/ml INJ 2ml VIAL IV SCH ×3 (06:09→22:50)
[2020-05-20 09:02] VITALS: BP 122/70
[2020-05-20] MEDS: LACTULOSE 20Gm/30ML SOLN PO SCH (09:11)
[2020-05-20] MEDS: PANTOPRAZOLE 40 MG/10 ML VIAL INJ IV SCH ×2 (09:11→22:50)
[2020-05-20] MEDS: SODIUM CHLOR 0.9% PF (SALINE LOCK) 10ML VIAL/SYR IV SCH ×2 (09:11→22:50)
[2020-05-20] MEDS: ZINC SULFATE 220mg CAP or TAB PO SCH (09:11)
[2020-05-20] MEDS: levoFLOXacin 500 MG TAB PO SCH (09:12)
[2020-05-20] MEDS: METOPROLOL TARTRATE 50 MG TAB PO SCH ×2 (09:12→22:50)
[2020-05-20] MEDS: ASCORBIC ACID 1,000 MG TAB PO SCH (09:13)
[2020-05-20] MEDS: CHOLECALCIFEROL (VITD3) 2,000 UNIT CAP PO SCH (09:13)
[2020-05-20 13:00] VITALS: BP 98/64
[2020-05-20 17:00] VITALS: BP 111/58
[2020-05-20] MEDS ORDERED: DIGOXIN (250MCG/ML) 2 ML AMPULE IV ONE (17:00)
[2020-05-20 22:16] VITALS: BP 130/66
[2020-05-20] MEDS: ATORVASTATIN 20 MG TAB PO SCH (22:50)
[2020-05-21 05:00] VITALS: BP 117/63
[2020-05-21] MEDS: METOCLOPRAMIDE HCL 5MG/ml INJ 2ml VIAL IV SCH ×2 (06:04→15:15)
[2020-05-21 07:26] LABS: Basophils # (auto) 0 10 ^3/uL (0-0.2); Basophils % (auto) 0.3 % (0.0-2.0); Eosinophils # (auto) 0.4 10 ^3/uL (0-0.8); Eosinophils % (auto) 8.8 % (0.0-7.0); Hemoglobin 9.4 g/dL (13.5-17.5); Lymphocytes # (auto) 0.3 10 ^3/uL (0.4-5.4); Lymphocytes % (auto) 6.7 % (10.0-50.0); Mean Corpuscular Hemoglobin 31.8 pg (28.0-32.0); Mean Corpuscular Hgb Conc. 33.7 g/dL (32.0-36.0); Mean Corpuscular Volume 94.2 fL (80.0-100.0); Monocytes # (auto) 0.5 10 ^3/uL (0-1.3); Monocytes % (auto) 10.8 % (0.0-12.0); Neutrophils # (auto) 3.7 10 ^3/uL (1.6-8.6); Neutrophils % (auto) 73.4 % (37.0-80.0); Platelet Count (auto) 155 10^3/uL (140-450); Red Blood Cells 2.97 10^6/uL (4.5-5.90); Red Cell Distribution Width 14.2 % (11.8-14.3); White Blood Cell 5.1 10^3/uL (4.4-10.8)
[2020-05-21 08:07] LABS: Potassium 3.8 mmol/L (3.5-5.1)
[2020-05-21 09:00] VITALS: BP 123/64
[2020-05-21 09:01] LABS: Albumin 1.4 g/dL (3.4-5.0); BUN/Creatinine Ratio 22.3; Bilirubin, Total 0.8 mg/dL (0.2-1.0); CRP High Sensitivity 14.8 mg/dL (< 0.3); Magnesium 2.5 mg/dL (1.6-2.6); Total Protein 5.3 g/dL (6.4-8.2)
[2020-05-21] MEDS: METOPROLOL TARTRATE 50 MG TAB PO SCH (09:27)
[2020-05-21] MEDS: levoFLOXacin 500 MG TAB PO SCH (09:28)
[2020-05-21] MEDS: PANTOPRAZOLE 40 MG/10 ML VIAL INJ IV SCH (09:33)
[2020-05-21] MEDS: SODIUM CHLOR 0.9% PF (SALINE LOCK) 10ML VIAL/SYR IV SCH (09:33)
[2020-05-21] MEDS: ZINC SULFATE 220mg CAP or TAB PO SCH (09:33)
[2020-05-21] MEDS: LACTULOSE 20Gm/30ML SOLN PO SCH (09:33)
[2020-05-21] MEDS: ASCORBIC ACID 1,000 MG TAB PO SCH (09:34)
[2020-05-21] MEDS: CHOLECALCIFEROL (VITD3) 2,000 UNIT CAP PO SCH (09:34)
[2020-05-21 13:00] VITALS: BP 104/66
[2020-05-21 17:00] VITALS: BP_SYST 112; BP_SYST 118; BP_DIAS 64; BP_DIAS 69
[2020-05-21 22:00] VITALS: BP 115/59
[2020-05-21] MEDS ORDERED: ATORVASTATIN 20 MG TAB PO SCH (23:22)
[2020-05-21] MEDS ORDERED: METOPROLOL TARTRATE 50 MG TAB PO SCH (23:22)
[2020-05-21] MEDS ORDERED: SODIUM CHLOR 0.9% PF (SALINE LOCK) 10ML VIAL/SYR IV SCH (23:23)
[2020-05-21] MEDS ORDERED: METOCLOPRAMIDE HCL 5MG/ml INJ 2ml VIAL IV SCH (23:23)
[2020-05-21] MEDS ORDERED: PANTOPRAZOLE 40 MG/10 ML VIAL INJ IV SCH (23:23)
[2020-05-21] MEDS ORDERED: ACETAMINOPHEN 500 MG TAB PO PRN (23:30)
[2020-05-22] MEDS ORDERED: ZINC SULFATE 220mg CAP or TAB PO SCH (10:00)
[2020-05-22] MEDS ORDERED: LACTULOSE 20Gm/30ML SOLN PO SCH (10:00)
[2020-05-22] MEDS ORDERED: ASCORBIC ACID 1,000 MG TAB PO SCH (10:00)
[2020-05-22] MEDS ORDERED: CHOLECALCIFEROL (VITD3) 2,000 UNIT CAP PO SCH (10:00)
[2020-05-22] MEDS ORDERED: levoFLOXacin 500 MG TAB PO SCH (10:00)
== END 2020-05-22 02:35 | DRG 870 ==
LOC: ER 08:45 → TELE 08:46 → TELE-EAST 21:07 → TELE-E-ADS 04-26 11:38 → ICU WEST 04-28 23:53 → EAST 05-14 18:11 → TELE-E-ADS 05-16 18:33 → UNDODISIN 05-21 19:00
PROVIDERS: ADMIT Nurse Practitioner Acute Care; ATTEND Internal Medicine
PROC: 5A1955Z Respiratory Ventilation, Greater than 96 Consecutive Hours (ICD-10-PCS; 2020-04-27)
PROC: 0BH17EZ Insertion of Endotracheal Airway into Trachea, Via Natural or Artificial Opening (ICD-10-PCS; 2020-04-27)
PROC: 5A09357 Assistance with Respiratory Ventilation, Less than 24 Consecutive Hours, Continuous Positive Airway Pressure (ICD-10-PCS; 2020-04-27)
PROC: XW13325 Transfusion of Convalescent Plasma (Nonautologous) into Peripheral Vein, Percutaneous Approach, New Technology Group 5 (ICD-10-PCS; 2020-04-28)
PROC: XW033E5 Introduction of Remdesivir Anti-infective into Peripheral Vein, Percutaneous Approach, New Technology Group 5 (ICD-10-PCS; 2020-04-29)
PROC: 02HV33Z Insertion of Infusion Device into Superior Vena Cava, Percutaneous Approach (ICD-10-PCS; principal; 2020-05-07)
PROC: 30233N1 Transfusion of Nonautologous Red Blood Cells into Peripheral Vein, Percutaneous Approach (ICD-10-PCS; 2020-05-13)
DX: A41.89 Other specified sepsis (principal); U07.1 COVID-19; J12.89 Other viral pneumonia; J96.01 Acute respiratory failure with hypoxia; I21.A1 Myocardial infarction type 2; N17.0 Acute kidney failure with tubular necrosis; G93.41 Metabolic encephalopathy; D68.59 Other primary thrombophilia; I48.92 Unspecified atrial flutter; E87.0 Hyperosmolality and hypernatremia; N39.0 Urinary tract infection, site not specified; D62 Acute posthemorrhagic anemia; G93.1 Anoxic brain damage, not elsewhere classified; E87.4 Mixed disorder of acid-base balance; K92.2 Gastrointestinal hemorrhage, unspecified; J45.909 Unspecified asthma, uncomplicated; N18.30 Chronic kidney disease, stage 3 unspecified; D69.6 Thrombocytopenia, unspecified; I12.9 Hypertensive chronic kidney disease with stage 1 through stage 4 chronic kidney disease, or unspecified chronic kidney disease; E87.5 Hyperkalemia; Z90.49 Acquired absence of other specified parts of digestive tract; Z79.899 Other long term (current) drug therapy; Z82.5 Family history of asthma and other chronic lower respiratory diseases; Z88.8 Allergy status to other drugs, medicaments and biological substances; Z86.73 Personal history of transient ischemic attack (TIA), and cerebral infarction without residual deficits; I48.91 Unspecified atrial fibrillation
CPT/HCPCS: 36415; 36569; 36600; 70450; 71045; 71250; 74018; 74176; 80048; 80053; 80061; 80076; 80162; 80198; 80202; 81001; 82140; 82306; 82550; 82570; 82728; 82805; 82962; 83036; 83605; 83615; 83735; 83880; 84100; 84156; 84300; 84443; 84484; 84550; 85007; 85014; 85018; 85025; 85027; 85379; 85610; 85730; 86141; 86850; 86900; 86901; 86920; 87040; 87070; 87077; 87081; 87186; 87205; 87426; 92610; 93005; 93306; 93886; 94002; 94003; 94640; 94660; 97110; 97163; 97530; A4618; C9113; G0378; J0153; J0330; J0696; J1100; J1815; J1956; J2250; J2543; J2704; J3490; J7042; J7060